=== PATIENT | female | born 1965 | race Caucasian/White ===

== ENCOUNTER 2023-10-14 18:21 | Emergency (ER) | payer OTHER, SELFPAY ==
[2023-10-14 18:24] VITALS: BP 152/82; PULSE 120; RESP 20; TEMP 38.3; O2SAT 100
--- NOTE | 2023-10-14 18:49 | ED.VIS.DYS ---
HPI History of Present Illness Chief Complaint: Cold Sx Informant: patient Narrative Narrative: History of asthma and lupus on immunosuppressants. 2-day history cough. Today myalgias and fever. Has headache. Denies vomiting or diarrhea. Denies urinary symptoms. No COVID or flu vaccinated this year. Reports dyspnea due to the cough. Denies COPD history. PFSH PFS Home Medications NK 10/14/23 [History Last Taken Unknown] nirmatrelvir 300 mg (150 mg x2)-ritonavir 100 mg tablet,dose pack (Paxlovid) See Rx Instructions PO .COMPLEX #30 tabs 10/14/23 [Rx Last Taken Unknown] prednisone 20 mg tablet 60 mg (3 x 20 mg) PO DAILY #12 TABLETS 10/14/23 [Rx Last Taken Unknown] Allergy/AdvReac Type Severity Reaction Status Date / Time aspirin Allergy Swelling Verified 10/14/23 18:24 acetaminophen [From Tylenol] AdvReac Other Verified 10/14/23 18:24 ketorolac [From Toradol] AdvReac Other Verified 10/14/23 18:24 Social History Smoking Status: Current every day smoker tobacco type: cigarettes ROS ROS ED Constitutional Constitutional ED: Reports fever(s); Denies chills or sweats Eyes Eyes: Denies change in vision ENT ENT ED: Denies dysphagia or sore throat Cardiovascular Cardiovascular: Denies chest pain, leg edema, palpitations or racing heartbeat Respiratory/Chest Respiratory/Chest: Reports cough and dyspnea; Denies dyspnea on exertion Gastrointestinal Gastrointestinal: Denies abdominal pain, diarrhea, nausea or vomiting Genitourinary Genitourinary ED: Denies dysuria, hematuria or urinary frequency Musculoskeletal Musculoskeletal: Reports myalgias; Denies back pain, extremity pain or neck pain Integumentary Denies rash or wounds Neurologic Neurologic: Reports headache(s); Denies paresthesias or weakness EXAM Physical Exam Const Vital Signs: 10/14/23 18:24 10/14/23 18:56 Temperature 100.9 F H Temperature Source Temporal Pulse Rate 120 H Respiratory Rate 20 H Respiratory Effort Normal Respiratory Pattern Normal Blood Pressure 152/82 H Blood Pressure Mean 105 Pulse Ox 100 Oxygen Delivery Method Room Air Positive well nourished and well developed General Appearance ED: well developed and NAD HEENT Reports moist mucous membranes normocephalic and atraumatic Eyes PERRL, EOMs intact bilaterally and conjunctivae normal General Eye ED: Yes normal appearance of both eyes Neck no lymphadenopathy and supple Neck Narrative: no meningismus. para Cervical tenderness. General: Negative for tenderness Chest Wall Chest: Negative for tenderness Resp normal respiratory effort and normal air movement Effort and Inspection: symmetric chest movement; Negative for respiratory distress Cardio regular rhythm and no murmurs Rate: tachycardic Peripheral Pulses: pulses 2+ throughout GI normal to inspection, nondistended, normoactive bowel sounds and non-tender Palpation: Negative for guarding or rebound tenderness present Back/Spine no CVA tenderness and no thoracic nor lumbar tenderness Extremity normal to inspection General Extremety ED: Negative for edema or tenderness General Extremity: Negative for edema Neuro oriented x3, CN's II-XII intact bilaterally and no sensory deficits noted Sensorium / Orientation: awake and alert Skin no rashes or lesions noted and no wounds MDM MDM MDM Narrative Medical decision making narrative: Interventions / MDM: Differential diagnosis: Viral syndrome Diagnosis considered but do not suspect: Pneumonia however chest x-ray negative My EKG interpretation: N/A Imaging independently reviewed and interpreted by myself: 2 view chest x-ray: No acute process External documents reviewed: N/A Test considered but not ordered:N/A ED course: Patient low-grade temperature on arrival nontoxic. Two-view chest x-ray ordered COVID influenza ordered. Results positive COVID chest x-ray negative for pneumonia. She is able to tolerate Motrin in the past therefore this was started. With her asthma history reported mild wheezing will start prednisone to help with symptoms pulse ox remained at 100% room air. Patient day 2 of symptoms with immunocompromise on Plaquenil for her lupus. Discussed Paxlovid as an option with side effects, she would like this sent to the pharmacy. Will continue steroids. Return precautions. All questions were answered. Re-evaluation: stable Disposition discussed with patient/family/significant other: Patient Case discussed with consulting clinician: N/A This note was generated with DocRun dictation software. It may contain incorrect words, spelling, and punctuation that were not noted in checking the note before signing. Radiography Diagnostic Testing: Clinical Impression(s) from Imaging Studies Chest X-Ray 10/14/23 19:03 IMPRESSION: Suspected chronic obstructive pulmonary disease. No acute pulmonary disease. Electronically Signed: George Russ MD at 19:31 EST , Discharge Plan Triage Chief Complaint: Cold Sx ED Provider: Tim Anders Dx/Rx/DC Orders Clinical Impression: COVID-19 virus infection, Fever, Asthma Instructions: Coronavirus Disease 2019 (COVID-19): Caring for Yourself or Others, Asthma Prescriptions: New Paxlovid 300 mg (150 mg x 2)-100 mg tablets,dose pack See Rx Instructions .ROUTE .COMPLEX Qty: 30 0RF Rx Instructions: take TWO 150 mg tablets of nirmatrelvir with ONE 100 mg tablet of ritonavir twice daily for 5 days prednisone 20 mg tablet 60 mg PO DAILY Qty: 12 0RF Rx Instructions: Next dose 10/15/2023. No Action NK Primary Care Provider: Jennifer Morris Referrals: Jennifer Morris, [Primary Care Provider] - 1 Week Activity Restrictions/Additional Instructions: Chest x-ray negative. Flu negative. COVID-positive. Continue your Plaquenil, take Paxlovid as prescribed, risk and benefits discussed. Take steroids with your asthma history. Follow-up with your doctor. Return for any worsening respiratory symptoms not controlled with your inhaler. May want to discuss with hospice who managed her mother for options as you are diagnosed with COVID. Disposition Disposition: Home, Self Care Discharge Date/Time: 10/14/23 20:18
--- NOTE | 2023-10-14 19:03 | RAD_ITS ---
INDICATION: cough EXAMINATION: Frontal and lateral views of the chest. COMPARISON: None. FINDINGS: Frontal and lateral views of the chest were obtained. Hyperinflation. The cardiac silhouette is not enlarged. No confluent airspace disease. Apical scarring bilaterally. No pleural effusion or pneumothorax. RAD/Chest PA and Lateral IMPRESSION: Suspected chronic obstructive pulmonary disease. No acute pulmonary disease. Electronically Signed: George Russ MD at 19:31 EST ,
[2023-10-14] MEDS: predniSONE 20 MG Tablet 60 MG PO (20:02)
[2023-10-14] MEDS: Ibuprofen 600 MG Tablet PO (20:02)
== END 2023-10-14 20:18 | disposition home or self-care (01) ==
PROVIDERS: Emergency Provider Emergency Medicine; PCP Family Medicine; Visit Provider Emergency Medicine
DX: U07.1 COVID-19 (principal); J45.909 Unspecified asthma, uncomplicated; R50.9 Fever, unspecified; F17.210 Nicotine dependence, cigarettes, uncomplicated
CPT/HCPCS: 71046; 87428; 99283

== ENCOUNTER 2023-12-07 22:48 | Emergency (ER) | payer OTHER, SELFPAY ==
[2023-12-07 22:48] VITALS: BP 129/97; PULSE 104; RESP 16; TEMP 36.1; O2SAT 95
--- NOTE | 2023-12-08 00:17 | EX.ED.VIS.PS ---
HPI HPI - Psych History of Present Illness Chief Complaint: Mental Health Narrative Narrative: Patient is brought in pink slipped due to paranoid behavior. The patient tells me that she called the police again tonight. She believes her neighbors are doing things to her. Of note, it takes extensive questioning to get this out of her. She has flight of ideas and has trouble staying on track for even 5 or 10 seconds. She states she has lived in this trailer for about 7 months. The neighbors initially ignored her. But recently they suddenly befriended her which she states she knows what that means. They have been crawling around in an underground sewer maintenance supervisor system that she has tracked on the night clerk auditor's website. They are releasing gases into her house. They put a tracking device on her keychain for her house and car. They are living above her and below her. But she lives in a mobile home and has no attic. Police have been there multiple times and verified that there is no founded complaint based in reality. Patient has been getting worse. 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 There is no indication of abuse but this is certainly concerning. When I ask if the patient's had psychiatric illness she states that everybody has something. She admits to attention deficit disorder. She alludes to psychiatric illness and multiple family members but I cannot get specifics from her. She is evidently on ropinirole for restless leg and Plaquenil for lupus. But these are not new or any change in her dose nor she take an extra. I specifically asked and she specifically denies if she has been on steroids recently. [facility] Medical History (Updated 12/08/23 @ 01:[address] Jacobo Terrell MD) Lupus Restless leg syndrome Home Medications hydroxychloroquine 200 mg tablet (Plaquenil) 200 mg PO QHS 12/08/23 [History Last Taken Unknown] lamotrigine 100 mg tablet 100 mg PO Q12H 12/08/23 [History Last Taken Unknown] ropinirole 0.5 mg tablet 0.5 mg PO QHS 12/08/23 [History Last Taken Unknown] Allergy/AdvReac Type Severity Reaction Status Date / Time aspirin Allergy Swelling Verified 12/07/23 22:48 acetaminophen [From Tylenol] AdvReac Other Verified 12/07/23 22:48 ketorolac [From Toradol] AdvReac Other Verified 12/07/23 22:48 Social History Smoking Status: Current every day smoker tobacco type: cigarettes ROS ROS ED Constitutional Constitutional ED: Denies fever(s) Eyes Eyes: Reports other Details: No visual hallucinations. Most of her hallucinations are auditory in terms of hearing the neighbors do things around above and below her house. ; Denies change in vision ENT ENT ED: Denies rhinorrhea Cardiovascular Cardiovascular: Denies chest pain Respiratory/Chest Respiratory/Chest: Denies cough or dyspnea Gastrointestinal Gastrointestinal: Denies diarrhea, nausea or vomiting Genitourinary Genitourinary ED: Denies hematuria Musculoskeletal Musculoskeletal: Denies myalgias Integumentary Denies rash Neurologic Neurologic: Denies headache(s), paresthesias or weakness Psychiatric Psychiatric: Reports anxiety and other Details: See history of present illness. ; Denies suicidal ideation or suicidal thoughts Endocrine Endocrinology: Denies polydipsia or polyuria Hematologic/Lymphatic Hematologic/Lymphatic: Denies easy bleeding or easy bruising Allergic/Immunologic Allergic/Immunologic ED: Denies urticaria EXAM Physical Exam Narrative Exam Narrative: General: Patient is awake and alert. She is cooperative but has trouble keeping on task. She is appropriately dressed and groomed. HEENT: No trauma noted. No congestion. Mucous membranes are moist. Neck is supple no pain with motion Lungs are clear bilaterally. Saturations are normal at 95% sat on room air showing no hypoxia. Heart is regular. No murmur. Abdomen is thin and nontender. Extremities show no sign of trauma. She does complain that the left shoulder hurts from having it pulled behind her. But I am not finding any areas of bruising or deformity. Exam is overall normal but we will do x-ray. Neuro: Patient is actually oriented x 3 but it takes some questioning. She is stable gait. Clear speech. Psychiatry: Patient has significant flight of ideas. Mild pressured speech. She has some paranoia. By history she has auditory hallucinations but no visual hallucinations. Const Vital Signs: 12/07/23 22:48 12/08/23 00:49 Temperature 97 F L Temperature Source Temporal Pulse Rate 104 H Respiratory Rate 16 16 Blood Pressure 129/97 H Blood Pressure Mean 107 Pulse Ox 95 MDM MDM MDM Narrative Medical decision making narrative: My independent interpretation of the patient's two-view x-ray of the left shoulder shows no acute process. Final reading is pending. Patient's CBC is normal. Urine toxicology is positive for amphetamines, ecstasy and cannabinoids. Patient's electrolytes showed minimal dehydration. Patient will be seen by crisis. This evaluation is pending. She is medically cleared for psychiatric evaluation and admission if needed. Lab Data Labs: Laboratory Results - last 24 hr 12/07/23 12/07/23 00:25 00:27 WBC 8.9 RBC 4.38 Hgb 14.1 Hct 41.8 MCV 95.4 MCH 32.2 H MCHC 33.7 RDW Std Deviation 45.2 H RDW Coeff of [place] 12.8 Plt Count 208 MPV 10.6 Immature Gran % (Auto) 0.300 Neut % (Auto) 79.9 H Lymph % (Auto) 10.5 L [place] % (Auto) 7.1 Eos % (Auto) 1.6 Baso % (Auto) 0.6 Absolute Neuts (auto) 7.1 Absolute Lymphs (auto) 0.94 Nucleated RBC % 0 Sodium 144 Potassium 3.9 Chloride 111 H Carbon Dioxide 25.0 Anion Gap 8 BUN 20 H Creatinine 0.78 Estim Creat Clear Calc 61.42 Est GFR (MDRD) Af Amer 97 Est GFR (MDRD) Non-Af 80 BUN/Creatinine Ratio 25.7 H Glucose 104 Calcium 9.3 Urine Opiates Screen NEGATIVE Urine Methadone Screen NEGATIVE Ur Barbiturates Screen NEGATIVE Ur Phencyclidine Scrn NEGATIVE Ur Amphetamines Screen POSITIVE H MDMA (Ecstasy) Screen POSITIVE H U Benzodiazepines Scrn NEGATIVE Urine Cocaine Screen NEGATIVE U Cannabinoids Screen POSITIVE H Ur Drug Screen Comment Ethyl Alcohol < 3.0 Discharge Plan Triage Chief Complaint: Mental Health ED Provider: Jacobo Terrell Dx/Rx/DC Orders Clinical Impression: Acute psychosis, Ecstasy abuse, Drug abuse, marijuana, Drug abuse, amphetamine type Prescriptions: No Action lamotrigine 100 mg tablet 100 mg PO Q12H Patient Comments: TAKE 1 TABLET BY MOUTH TWICE A DAY ropinirole 0.5 mg tablet 0.5 mg PO QHS Patient Comments: TAKE 1 TABLET BY MOUTH EVERYDAY AT BEDTIME hydroxychloroquine [Plaquenil] 200 mg tablet 200 mg PO QHS Primary Care Provider: Jennifer Morris Referrals: Jennifer Morris, [Primary Care Provider] -
--- OUTSIDE RECORDS SUMMARY | 2023-12-08 00:28 | XMS RPT_ITS | CCD ---
Author Name Unknown Address [address] [place] [address] Organization [facility] Care Team Providers Care Staff Anesthetist Name Role Phone UNKNOWN, PROVIDER Unavailable Unavailable SHEETS, STERLING C Unavailable Unavailable Barrie, Jose Unavailable Unavailable PREMA, ROSWELL Unavailable Unavailable Prema, Cordova Unavailable Unavailable Barrie, Jose Unavailable Unavailable Sheets, Sterling Unavailable Unavailable Sheets, Sterling Unavailable Unavailable Sheets, Sterling Unavailable Unavailable Sheets, Sterling Unavailable Unavailable Barrie, Jose Unavailable Unavailable No, PCP Unavailable Unavailable PROVIDER, UNKNOWN Unavailable Unavailable Prema, Cordova Unavailable Unavailable Sheets, Sterling Unavailable Unavailable Sheets, Sterling Unavailable Unavailable Prema, Cordova Unavailable Unavailable Anshu Cross Unavailable Unavailable Sheets, Sterling C Unavailable Unavailable Arafah, Baha Unavailable Unavailable Foster, Sreekanth C Unavailable Unavailable GholamAlvaro M Unavailable Unavailable Sheets, Sterling C Unavailable Unavailable Unavailable Stevo Terry Unavailable Sheets Sterling BAILEY Primary Care Provider Stevo Terry Unavailable Sheets Sterling BAILEY Primary Care Provider Stevo Terry Unavailable Sheets Sterling BAILEY Primary Care Provider STERLING MORRIS Referring Unavailable SHEETSSTERLING Primary Care Unavailable MD ANSHU CROSS Attending Unavailable Sheets, Dr. Sterling Liu Referring Unavailable Sheets, Dr. Sterling Liu Primary Care Unavailable Sheets, Dr. Sterling Liu Primary Care Unavailable MD ANSHU CROSS Referring Unavailable MD ANSHU CROSS Attending Unavailable ANSHU CROSS MD Attending Unavailable SHEETS, STERLING Sun Primary Care Unavailable ANSHU CROSS MD Attending Unavailable SHEETS, STERLING uSn Referring Unavailable SHEETS, STERLING C Primary Care Unavailable SHEETS, STERLING C Referring Unavailable SHEETS, STERLING C Primary Care Unavailable SHEETS, STERLING C Attending Unavailable SHEETS, STERLING C Primary Care Unavailable SHEETS, STERLING C Attending Unavailable SHEETS, STERLING C Primary Care Unavailable Sheets DO, Sterling Liu Primary Care Pro vider Anshu Cross MD Unavailable ANSHU CROSS Attending Unavailable SHEETS, STERLING LIU Primary Care Celestina vailable Allergies Allergy Classification Reported Allergen(s) Allergy Type Date of Onset Reaction(s) Facility Acetaminophen (1 source) Acetaminophen; Translations: [Tylenol] Drug Allergy Swelling, Itching [facility] Work Phone: Aspirin (1 source) Aspirin; Translations: [Aspirin TABS] Drug Allergy Itching, Swelling [facility] Work Phone: Lactose (1 source) Lactose; Translations: [Lactose] Drug Allergy Dyspepsia [facility] Work Phone: NSAIDs (1 source) Etodolac; Translations: [etodolac] Drug Allergy Itching, Swelling [facility] Work Phone: (18 sources) Acetaminophen; Translations: [Tylenol] Drug Allergy Swelling, Itching [facility] Work Phone: (20 sources) Aspirin; Translations: [Aspirin TABS] Drug Allergy 7 Itching, Swelling [facility] (20 sources) Etodolac; Translations: [etodolac] Drug Allergy 3 Itching, Swelling [facility] (20 sources) Lactose; Translations: [Lactose] Drug Allergy 7 Swelling, GI Upset [facility] (14 sources) Acetaminophen; Translations: [ACETAMINOPHEN] Drug Allergy 7 Unknown, Itching, Swelling [facility] Work Phone: (4 sources) Aspirin; Translations: [ASPIRIN] Drug Allergy 7 [facility] Other [facility] Medications Current Medications Medication Drug Class(es) Dates Sig (Normalized) Sig (Original) diclofenac sodium 0.01 mg/mg topical gel (20 sources) Nonsteroidal Anti-inflammatory Drug Start: 09-11-2018 diclofenac sodium 1 % kit Place on the skin once daily. 0 09/11/2018 Active Completed/Discontinued Medications Medication Drug Class(es) Dates Sig (Normalized) Sig (Original) [id number] 200 actuat albuterol 0.09 mg/actuat metered dose inhaler (20 sources) beta2-Adrenergic Agonist Start: 10-05-2019 albuterol HFA (PROAIR HFA) 90 mcg/actuation inhaler Indications: Mild intermittent asthma, uncomplicated Inhale 2 Puffs as instructed as needed. 1 Inhaler 0 10/05/2019 Active Problems Active Problems Problem Classification Problem Date Documented Date Episodic/Chronic Anxiety disorders (1 source) Other specified anxiety disorders; Translations: [Anxiety with depression] Onset: 10-12-2023 Chronic Asthma (11 sources) Mild intermittent asthma; Translations: [Mild intermittent asthma, uncomplicated] Onset: 11-05-2018 11-05-2018 Chronic Attention-deficit, conduct, and disruptive behavior disorders (9 sources) Attention deficit hyperactivity disorder; Translations: [Attention-deficit hyperactivity disorder, unspecified type] Onset: 01-07-2017 01-07-2017 Chronic Epilepsy; convulsions (14 sources) Seizure disorder; Translations: [Epilepsy, unspecified, not intractable, without status epilepticus] Onset: 03-28-2022 03-28-2022 Chronic Mood disorders (20 sources) Depressive disorder; Translations: [Depressive disorder, not elsewhere classified] Onset: 01-07-2017 01-07-2017 Chronic Past or Other Problems Problem Classification Problem Date Documented Date Episodic/Chronic Allergic reactions (13 sources) Allergy status to analgesic agent status; Translations: [Allergy status to other drugs, medicaments and biological substances status] Onset: 06-13-2017 07-18-2020 Episodic E Codes: Fall (7 sources) Fall from bed, initial encounter; Translations: [Accidental fall from bed] Resolved: 07-13-2020 Episodic External cause codes: Fall (1 source) Fall from bed, initial encounter; Translations: [Accidental fall from bed] Medical examination/evaluatio n (2 sources) Encounter for other preprocedural examination; Translations: [Encounter for other preprocedural examination] Onset: 06-05-2017 Episodic Other aftercare (12 sources) Long-term current use of drug therapy; Translations: [Long-term (current) use of other medications] Resolved: 06-10-2018 Episodic Other circulatory disease (10 sources) Elevated blood-pressure reading without diagnosis of hypertension; Translations: [Elevated blood-pressure reading, without diagnosis of hypertension] Onset: 03-28-2022 03-28-2022 Episodic Other connective tissue disease (6 sources) Trigger thumb, left thumb; Translations: [Pain in right hand] Onset: 05-22-2017 Episodic Other connective tissue disease (9 sources) Tendinitis of foot; Translations: [Other enthesopathy of unspecified foot and ankle] Onset: 03-04-2017 03-04-2017 Episodic Other eye disorders (9 sources) Tear film insufficiency; Translations: [Dry eye syndrome of bilateral lacrimal glands] Onset: 03-20-2021 03-20-2021 Episodic Other injuries and conditions due to external causes (2 sources) Personal history of (healed) traumatic fracture; Translations: [Personal history of (healed) traumatic fracture] Onset: 05-22-2017 Episodic Other liver diseases (9 sources) Elevated liver enzymes level; Translations: [Abnormal levels of other serum enzymes] Onset: 08-19-2017 08-19-2017 Episodic Other lower respiratory disease (8 sources) Rib pain; Translations: [Chest pain, unspecified] Resolved: 07-19-2021 Episodic Other lower respiratory disease (19 sources) H/O: pneumonia; Translations: [Personal history of pneumonia (recurrent)] Resolved: 01-28-2015 Episodic Results Test Name Value Interpretation Reference Range Facil ity Vital Signs Date Time Vital Sign Value Performing Clinician Catalina robertson 05-29-2023 15:00-0400 Body height 165.1 cm Sterling C [employer] Work Phone: [facility] 1051 Work Phone: 05-29-2023 15:00-0400 Body mass index (BMI) [Ratio] 22.03 kg/m2 Sterling C Sheets Work Phone: [facility] 1050 Work Phone: 05-29-2023 15:00-0400 Body surface area Derived from formula 1.66 m2 Sterling C Sheets Work Phone: [facility] 105 Work Phone: 05-29-2023 15:00-0400 Body weight 60.05 kg Sterling C Sheets Work Phone: [facility] 1051 Work Phone: 05-29-2023 15:00-0400 Diastolic blood pressure 79 mm[Hg] Sterling C Sheets Work Phone: [facility] 1058 Work Phone: 05-29-2023 15:00-0400 Heart rate 72 /min Sterling C Sheets Work Phone: [facility] 1059 Work Phone: 05-29-2023 15:00-0400 Respiratory rate 18 /min Sterling C Sheets Work Phone: [facility] 1056 Work Phone: 05-29-2023 15:00-0400 SaO2% (BldA) [Mass fraction] 97 % Sterling C Sheets Work Phone: [facility] 1057 Work Phone: 05-29-2023 15:00-0400 Systolic blood pressure 143 mm[Hg] Sterling C Sheets Work Phone: [facility] 1057 Work Phone: 12-16-2022 15:52-0500 Body height 157.5 cm Sterling Sheets DO Work Phone: [facility] 12-16-2022 15:52-0500 Body temperature 98.2 [degF] Sterling Sheets DO Work Phone: [facility] 12-16-2022 15:52-0500 Body weight 62.78 kg Sterling Sheets DO Work Phone: [facility] 12-16-2022 15:52-0500 Diastolic blood pressure 70 mm[Hg] Sterling Sheets DO Work Phone: [facility] 12-16-2022 15:52-0500 Heart rate 81 /min Sterling Sheets DO Work Phone: [facility] 12-16-2022 15:52-0500 Respiratory rate 16 /min Sterling Sheets DO Work Phone: [facility] 12-16-2022 15:52-0500 SaO2% (BldA) [Mass fraction] 99 % Sterling Sheets DO Work Phone: [facility] 12-16-2022 15:52-0500 Systolic blood pressure 128 mm[Hg] Sterling Sheets DO Work Phone: [facility] 07-29-2022 13:03-0400 Body height 165.1 cm Sterling C Sheets Work Phone: [facility] Work Phone: 07-29-2022 13:03-0400 Body mass index (BMI) [Ratio] 24.03 kg/m2 Sterling C Sheets Work Phone: [facility] Work Phone: 07-29-2022 13:03-0400 Body surface area Derived from formula 1.72 m2 Sterling C Sheets Work Phone: [facility] Work Phone: 07-29-2022 13:03-0400 Body temperature 97.3 [degF] Sterling C Sheets Work Phone: [facility] Work Phone: 07-29-2022 13:03-0400 Body weight 65.49 kg Sterling C Sheets Work Phone: [facility] Work Phone: 07-29-2022 13:03-0400 Diastolic blood pressure 77 mm[Hg] Sterling C Sheets Work Phone: [facility] Work Phone: 07-29-2022 13:03-0400 Heart rate 70 /min Sterling C Sheets Work Phone: [facility] Work Phone: 07-29-2022 13:03-0400 Respiratory rate 18 /min Sterling C Sheets Work Phone: [facility] Work Phone: 07-29-2022 13:03-0400 SaO2% (BldA) [Mass fraction] 95 % Sterling C Sheets Work Phone: [facility] Work Phone: 07-29-2022 13:03-0400 Systolic blood pressure 146 mm[Hg] Sterling C Sheets Work Phone: [facility] Work Phone: 07-29-2022 13:03-0400 0 1 Sterling C Sheets Work Phone: [facility] Work Phone: Encounters Encounter Date Encounter Type Care Provider Facility Start: 11-27-2023 End: 11-27-[address] [facility] Ambulatory Start: 11-27-2023 End: 11-27-2023 Office outpatient visit 15 minutes Anshu Cross MD Work Phone: [facility] Procedures Date Procedure Procedure Detail Performing Clinician Start: 04-07-2023 Mammography Mammograph y Coordinator Start: 06-26-2022 Mammography Mammograph y Coordinator Start: 03-28-2022 Radex spine lumbosac ral minimum 4 views Sterling C Sheets DO Work Phone: Start: 09-27-2021 Adult depression scr eening assessment [facility] Start: 06-21-2020 Mammography [facility] Start: 04-13-2018 Colonoscopy [facility] Appendectomy Anshu Cross section Anshu Marc nslali Hernia repair Anshu Carr i History of Hand Inci kota Tendon Sheath Of A Finger Anshu Cross 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 Anshu Cross History of Transsphe noidal Tumor Removal Anshu Cross History of Wrist Surgery Angela Cross Neuroplasty and transposition of median nerve at carpal tunnel Anshu Cross Plan of Treatment Date Care Activity Detail Author Start: 07-12-2025 LIPID SCREEN LIPID SCREEN [facility] Start: 04-07-2024 Mammography MAMMOGRAM [facility] Start: 04-07-2024 Screening for malign ant neoplasm of breast Mammogram [facility] Start: 12-16-2023 ANNUAL PCP TEAM ASSOCIATE ACCOUNT DIRECTOR LUZ DISEASE VISIT ANNUAL PCP TEAM CHRONIC DISEASE VISIT [facility] Start: 11-27-2023 FUV, Provider: Anshu Cross, Status: Pen, Time: 3:00 PM FUV, Provider: Anshu Cross, Status: Pen, Time: 3:00 PM [facility] [place] [id number] Work Phone: Start: 07-12-2023 DIABETES SCREEN DIABETES SCREEN [facility] Start: 06-27-2023 COVID-19 Vaccine ( season) COVID-19 Vaccine ( season) [facility] Start: 06-27-2023 Influenza vaccination Influenza Vacc ine (#1) [facility] Start: 08-31-2023 Mammography MAMMOGRAM [facility] Start: 04-13-2023 Colonoscopy COLONOSCOPY [facility] Start: 04-13-2023 COLORECTAL CANCER SCREENING COLORECTAL CANCER SCREENING [facility] Start: 04-11-2023 End: 05-10-2024 US BREAST LTD RIGHT US BREAST LTD RIGHT Radiology Routine Abnormal mammogram Expected: 04/11/2023, Expires: 05/10/2024 [facility] Work Phone: Immunizations Immunization Date Immunization Notes Care Provider Nicole calderón 07-29-2022 influenza, injectabl e, quadrivalent, preservative free; Translations: [Fluarix Quadrivalent 0.5 ML Intramuscular Suspension Prefilled Syringe] Sterling Morris Work Phone: [facility] Payers Date Payer Category Payer Private Health Insurance [id number] 2018 Private Health Insurance [facility] CHOICE PLUS [id number] 2018-Present [phone] [address] [place] [address] O [id number] 2018 Medicare MEDICARE MEDICAR E A [id number] 2018-Present [phone] [address] [place] [address] Medicare [id number] 2018 Medicare MEDICARE MEDICAR E A [id number] 2018-Present [phone] [address] [place] [address] Medicare [id number] 2008 Private Health Insurance 1964 Unknown [id number] 1964 Unknown [id number] 1964 Unknown [id number] 1964 Unknown [id number] 1964 Unknown [id number] Unknown [facility] Social History Date Type Detail Facility Start: 09-01-2013 End: 11-27-2023 [facility] Medical Equipment Procedure Code Equipment Code Equipment Origin al Text Equipment Identifier Dates Plate Lcp Standa rd [employer] [id number] Bone 6x3 Hole 2 Column Variable - [id number] Start: 01-08-2017 Screw Lcp 2.7mm T8 [employer] 14mm Bone Stardrive Self Tap Modular - [id number] Start: 01-08-2017 Screw Lcp 2.4mm T8 [employer] 24mm Bone Self Tap Self Retaining - [id number] Start: 01-08-2017 Screw Lcp 2.4mm T8 [employer] 20mm Bone Variable Angle Lock Self Tap - [id number] Start: 01-08-2017 Screw Lcp 2.4mm T8 [employer] 14mm Bone Variable Angle Lock Self Tap - [id number] Start: 01-08-2017 Screw Lcp 2.4mm T8 [employer] 16mm Bone Variable Angle Lock Self Tap - [id number] Start: 01-08-2017 Screw Lcp 2.7mm T8 [employer] 12mm Bone [employer] Self Tap Modular - [id number] Start: 01-08-2017 Functional Status Date Assessment Result Facility NEGATED: Highlighted row Functional performance Functional status health issues are not documented Disease -[facility] Work Phone: Mental Status Date Assessment Result Facility NEGATED: Highlighted row Cognitive function [Interpretation] Cognitive status health issues are not documented Disease -[facility] Work Phone: Clinical Notes 05-22-2017 to 11-27-2023 Assessment & Plan Note - Anshu Cross MD - 11/27/2023 3:55 PM ESTAssessment & Plan Note - Anshu Cross MD - 11/27/2023 3:55 PM Amor Cross MD - 11/27/2023 3:00 PM EST Note Date & Type Note Facility 11-27-2023 Evaluation + Plan note Associated Problem(s): Bipolar 1 disorder (CMS/HCC) Chronic Condition Documentation: Stable based on symptoms and exam. Continue established treatment plan and follow-up at least yearly. Managed by PCP [facility] Work Phone: 11-27-2023 Evaluation + Plan note Associated Problem(s): Seizure disorder (CMS/HCC) Chronic Condition Documentation: Stable based on symptoms and exam. Continue established treatment plan and follow-up at least yearly. Monitored by PCP [facility] Work Phone: 11-27-2023 Evaluation + Plan note Associated Problem(s): Mild intermittent asthma, uncomplicated Chronic Condition Documentation: Stable based on symptoms and exam. Continue established treatment plan and follow-up at least yearly. Managed by PCP [facility] Work Phone: 11-27-2023 Miscellaneous Notes Associated Problem(s): Bipolar 1 disorder (CMS/HCC) Chronic Condition Documentation: Stable based on symptoms and exam. Continue established treatment plan and follow-up at least yearly. Managed by PCP Associated Problem(s): Seizure disorder (CMS/HCC) Chronic Condition Documentation: Stable based on symptoms and exam. Continue established treatment plan and follow-up at least yearly. Monitored by PCP Associated Problem(s): Mild intermittent asthma, uncomplicated Chronic Condition Documentation: Stable based on symptoms and exam. Continue established treatment plan and follow-up at least yearly. Managed by PCP Associated Problem(s): Systemic lupus erythematosus (CMS/HCC) Lupus on plaquenil therapy largely stable. Continue meds. Pt to call me if flares. Labs to be done at next inperson visit. Associated Problem(s): Encounter for monitoring of hydroxychloroquine therapy You are on chronic plaquenil. Make sure you see your eye doctor yearly. If you need an eye doctor, let me know and I can place a referral Plaquenil is dosed based on your weight. We will make sure your dose is below the maximum daily dose of 5mg/kg documented in this encounter [facility] Work Phone: 11-27-2023 Evaluation + Plan note Associated Problem(s): Systemic lupus erythematosus (CMS/HCC) Lupus on plaquenil therapy largely stable. Continue meds. Pt to call me if flares. Labs to be done at next inperson visit. [facility] Work Phone: 11-27-2023 Evaluation + Plan note Associated Problem(s): Encounter for monitoring of hydroxychloroquine therapy You are on chronic plaquenil. Make sure you see your eye doctor yearly. If you need an eye doctor, let me know and I can place a referral Plaquenil is dosed based on your weight. We will make sure your dose is below the maximum daily dose of 5mg/kg [facility] Work Phone: 11-27-2023 History of Present illness Narrative Virtual or Telephone Consent An interactive audio and video telecommunication system which permits real time communications between the patient (at the originating site) and provider (at the distant site) was utilized to provide this telehealth service. Verbal consent was requested and obtained from Krys Hanley on this date, 11/27/23 for a telehealth visit. Chief Complaint Patient presents with Follow-up Lupus SUBJECTIVE Lupus This is a chronic problem. Associated symptoms include arthralgias, fatigue and joint swelling. Pertinent negatives include no coughing, fever, myalgias, numbness, rash or weakness. Associated symptoms comments: Pt reports symptoms are stable. 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 Reports lupus is stable Some fatigue No rashes. Has swelling of R fingers and trigger fingers that are stuck that she hasn't been able to get in to see ortho. Since last seen, did have COVID in September. Did well with paxlovid. Patient Active Problem List Diagnosis Date Noted Bipolar 1 disorder ([facility]) 11/27/2023 Seizure disorder ([facility]) 11/27/2023 Mild intermittent asthma, uncomplicated 11/27/2023 Dupuytren's contracture 11/23/2023 Elevated blood pressure reading 11/23/2023 NAFLD (nonalcoholic fatty liver disease) 11/23/2023 Nontoxic multinodular goiter 11/23/2023 Osteopenia 11/23/2023 Raynaud's phenomenon 11/23/2023 Recurrent major depressive disorder, in partial remission ([facility]) 11/23/2023 Restless legs syndrome (RLS) 11/23/2023 Scoliosis 11/23/2023 Systemic lupus erythematosus ([facility]) 11/23/2023 Encounter for monitoring of hydroxychloroquine therapy 11/23/2023 Past Medical History: Diagnosis Date Ankle fracture History of fracture of ankle Cervical herniated disc Cervical herniated disc Consumes 2 to 3 servings of caffeine per day Goiter 05/04/2014 Personal history of goiter retirement (current) use of non-steroidal anti-inflammatories (nsaid) 01/11/2021 NSAID long-term use Migraine History of migraine Personal history of pneumonia (recurrent) 10/03/2014 History of pneumonia Seizure ([facility]) History of seizure disorder Stress fracture, right foot, initial encounter for fracture Stress fracture of right foot Current Outpatient Medications Medication Instructions albuterol (ProAir HFA) 90 mcg/actuation inhaler 1 puff, inhalation, Every 6 hours PRN cycloSPORINE (Restasis) 0.05 % ophthalmic emulsion 1 drop, Both Eyes, Every 12 hours diclofenac sodium 1 % kit transdermal, Daily RT DULoxetine (CYMBALTA) 20 mg, oral, Daily fluticasone (Flonase) 50 mcg/actuation nasal spray 1 spray, nasal, Daily hydroxychloroquine (Plaquenil) 200 mg tablet 1.5 tablets, oral, Daily lamoTRIgine (LaMICtal) 100 mg tablet 1 tablet, oral, 2 times daily methocarbamol (ROBAXIN) 750 mg, oral, 4 times daily rOPINIRole (REQUIP) 0.5 mg, oral, Nightly Allergies Allergen Reactions Acetaminophen Itching and Swelling Aspirin Itching and Swelling Etodolac Itching and Swelling Lactose GI Upset Review of Systems Constitutional: Positive for fatigue. Negative for fever. Respiratory: Negative for cough and shortness of breath. Cardiovascular: Negative for leg swelling. Musculoskeletal: Positive for arthralgias and joint swelling. Negative for back pain, gait problem and myalgias. Skin: Negative for color change and rash. Neurological: Negative for weakness and numbness. PHYSICAL EXAM There were no vitals taken for this visit. Physical Exam Vitals reviewed. Constitutional: General: She is not in acute distress. Appearance: She is not ill-appearing. HENT: Head: Normocephalic and atraumatic. Eyes: Conjunctiva/sclera: Conjunctivae normal. Pulmonary: Effort: No respiratory distress. Musculoskeletal: General: Swelling present. Cervical back: Normal range of motion. Comments: +trigger fingers 3rd and 4th finger R hand. 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 Neurological: General: No focal deficit present. Mental Status: She is alert and oriented to person, place, and time. Mental status is at baseline. Psychiatric: Mood and Affect: Mood normal. Assessment/plan Problem List Items Addressed This Visit Systemic lupus erythematosus ([facility]) - Primary Current Assessment & Plan Lupus on plaquenil therapy largely stable. Continue meds. Pt to call me if flares. Labs to be done at next inperson visit. Encounter for monitoring of hydroxychloroquine therapy Current Assessment & Plan You are on chronic plaquenil. Make sure you see your eye doctor yearly. If you need an eye doctor, let me know and I can place a referral Plaquenil is dosed based on your weight. We will make sure your dose is below the maximum daily dose of 5mg/kg Bipolar 1 disorder ([facility]) Current Assessment & Plan Chronic Condition Documentation: Stable based on symptoms and exam. Continue established treatment plan and follow-up at least yearly. Managed by PCP Seizure disorder ([facility]) Current Assessment & Plan Chronic Condition Documentation: Stable based on symptoms and exam. Continue established treatment plan and follow-up at least yearly. Monitored by PCP Mild intermittent asthma, uncomplicated Current Assessment & Plan Chronic Condition Documentation: Stable based on symptoms and exam. Continue established treatment plan and follow-up at least yearly. Managed by PCP Follow up: ___6__months documented in this encounter [facility] Work Phone: 11-27-2023 Instructions Anshu Cross MD - 11/27/2023 3:00 PM EST It was a pleasure to see you today Please call if your symptoms worsen Please review your summary for education and reminders. Follow up at your next appointment. If you had labs/xrays done today, you will be able to view on [facility]. We will contact you when the results are reviewed for further discussion. Please note that you may receive your results before I have had a chance to review. Please know I will be contacting you for discussion Homegoing instructions for all patient A healthy lifestyle helps chronic diseases These are all the goals you should strive to improve your overall health Blood pressure <130/85 BMI of <30 or waist circumference that is 1/2 of your height Fasting blood sugar <107 (if you are diabetic, aim for an A1c <6.4%_ LDL cholesterol <130 Avoid smoking Manage your stress Get your preventive exams Get your immunizations documented in this encounter [facility] Work Phone: 09-30-2023 Note HNO ID: [id number] Author: Sterling Morris, DO Service: ? Author Type: Physician Type: Progress Notes Filed: 10/12/2023 9:09 PM Note Text: VIRTUAL VISIT PROGRESS NOTE This is a virtual visit using [employer] Video Visit. It required patient-provider interaction for the medical decision making as documented below. I have communicated my name and active licensure. The patient's identity and physical location were verified at the time of this visit. Either the patient or their legal telesales representative has been informed of the risks and benefits of -- and alternatives to -- treatment through a remote evaluation and consents to proceed with the evaluation remotely. Krys Hanley is a 58 year old female seen for f/u for depression. She is taking cymbalta 60 mg daily She is feeling OK She lives with her mom and is taking care of her Her mom is in hospice at home She has a good friend who helps her and is a good social support She has a history of lupus, gets stiff occasionally, has to keep moving She is under the care of Dr. Alcala, chart collector She needs a refill of lamictal HISTORY REVIEWED (electronic chart updated): PAST MEDICAL HISTORY Diagnosis Date ADHD (attention deficit hyperactivity disorder) Bipolar 1 disorder (HCC) Carpal tunnel syndrome Cervical radiculopathy Epilepsy, partial (HCC) Golfer's elbow Lupus (systemic lupus erythematosus) (HCC) Nodular scleritis of both eyes peripheral vision loss Osteoarthritis Osteoporosis Sciatica Syncope Tennis elbow Vision loss left eye PAST SURGICAL HISTORY Procedure Laterality Date APPENDECTOMY CARPAL TUNNEL Bilateral INCISE FINGER TENDON SHEATH Left 01/08/2017 Left index trigger finger release OPEN RX DISTAL RADIUS FX, INTRA-ARTICULAR, 3+ FRAG Left 01/08/2017 ORIF left wrist PAST SURGICAL HISTORY OF Right trigger finger release of digits 1-4 PAST SURGICAL HISTORY OF Bilateral ulnar nerve decompression PROC RM-SPINAL FLUID TAP,DIAG repair RESEC CYST/LESN IRIS/CILIARY BODY 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 FAMILY HISTORY Problem Relation Age of Onset Hypertension Father Heart Father Emphysema Father Diabetes Father Cataract Father Cancer Father skin cancer Amblyopia Other Arthritis Mother Thyroid Mother Glaucoma Mother Cervical Cancer Mother Cervical Cancer Sister other (Leukemia) Maternal Uncle Social History Tobacco Use Smoking status: Every Day Packs/day: .5 Types: Cigarettes Start date: 10/27/1981 Smokeless tobacco: Never Substance Use Topics Alcohol use: No Drug use: No Current Outpatient Medications Medication Sig fluticasone (FLONASE) 50 mcg/actuation nasal spray Use 1 [place] in each nostril at bedtime as needed. lamoTRIgine (LAMICTAL) 100 mg tablet Take 1 tablet by mouth twice daily. methocarbamol (ROBAXIN) 500 mg tablet Take 500 mg by mouth four times daily. As needed DULoxetine (CYMBALTA) 60 mg capsule Take 1 capsule by mouth twice daily. (Patient taking differently: Take 60 mg by mouth twice daily. As needed) RESTASIS 0.05 % ophthalmic emulsion diclofenac (VOLTAREN) 1 % topical gel Apply as directed. rOPINIRole (REQUIP) 0.25 mg tablet Take 1 tablet by mouth every morning AND 2 tablets daily at bedtime. 1 tablet by mouth in the Amg, 2 tablets by mouth in the PM. albuterol HFA (PROAIR HFA) 90 mcg/actuation inhaler Inhale 2 Puffs as instructed as needed. B Complex Vitamins capsule vitamin B complex capsule Ascorbic Acid 100 mg tablet ascorbic acid 100 mg tablet lactase (LACTAID) 3,000 unit tablet Take 1 tablet by mouth three times daily as needed. HYDROXYCHLOROQUINE 200 mg tablet Take 150 mg by mouth twice daily. No current facility-administered medications for this visit. ALLERGIES Allergen Reactions Asa [Aspirin] Itching Patient wanted med added to her allergy list Etodolac Swelling Lactose Swelling Patient wanted this added to her list Tylenol [Acetaminop* Unknown She states it causes elevated liver enzymes. She states she takes Percocet and [place] without problem REVIEW OF SYSTEMS: HEENT: denies [place], change in hearing or vision, no other ENT complaints NECK: denies swelling or pain in neck RESPIRATORY: no cough, no wheezing or shortness of breath CARDIOVASCULAR: no chest pain, no palpitations GI: normal appetite, tolerating PO well, BMs normal, and no abdominal pain MUSCULOSKELETAL: denies any painful or swollen joints, no muscle aches SKIN: no rash PSYCH: denies depressed or anxious mood, sleep is normal HEMATOLOGY/LYMPHOLOGY: negative for prolonged bleeding, no swollen lymph nodes ENDOCRINE: denies cold/heat intolerance, denies polyuria or polydipsia, no goiter NEURO: no numbness or paresthesias and no weakness of the extremities PHYSICAL EXAMINATION: VIDEO EXAM: (if completed, performed via video enabled technology) GENERAL: alert and appropriate, in no distress, well-hydrated (more content not included)... [facility] 06-25-2023 Note HNO ID: [id number] Author: Nicolle Lewis RDMS Service: ? Author Type: Button Breaker Operator Type: Progress Notes Filed: 06/25/2023 1:23 PM Note Text: Radiology Service Progress Note PATIENT NAME: Krys Hanley DATE OF SERVICE: June 25, 2023 TIME: 1:22 PM PATIENT IDENTITY VERIFICATION COMPLETED USING TWO (2) IDENTIFIERS: Name and Date of confirmed by patient verbally. FALL SCREENING: Has the patient had 2 falls in the last year or 1 fall with injury or currently using an Ambulatory Assistive Device (Walker, Cane, Wheelchair, Crutches, etc.)? No PATIENT GENDER DATA: Female. status: : No status: NO. PATIENT RELEVANT IMPLANT DATA REVIEWED: Not Applicable RADIOLOGY DEPARTMENT: Ultrasound PERIPHERAL IV DATA: Not applicable SIGNED BY: Nicolle Lewis RDMS June 25, 2023 1:22 PM [facility] 04-15-2023 Miscellaneous Notes All information left on patients vm. (Ok per lifetime consent). Jennifer Gage MA Please call pt- mammogram looks OK, but they are recommending an US of the right breast to be thorough. Order attached .Sterling Morris DO documented in this encounter [facility] 04-08-2023 Miscellaneous Notes April 08, 2023 PID: [id number] Krys Hanley [address] [place] [address] Dear Ms. Hanley, Your recent breast imaging exam on 04/07/2023 showed a possible finding that requires additional imaging studies for a complete evaluation. Most such findings are probably benign (not cancer). Your mammogram demonstrates that you have dense breast tissue, which could hide abnormalities. Dense breast tissue, in and of itself, is a relatively common condition. Therefore, this information is not provided to cause undue concern; rather, it is to raise your awareness and promote discussion with your health care provider regarding the presence of dense breast tissue in addition to other risk factors. If you have a healthcare provider who ordered/prescribed your screening mammogram: Please call to schedule an appointment for your additional imaging (if you have not already done so). Additional Imaging cannot be self scheduled in [facility]. If you DO NOT have a healthcare provider (ie you did not have an order/prescription for your screening mammogram): Please call to schedule an appointment for your additional imaging (if you have not already done so). Additonal Imaging cannot be self scheduled in [facility]. This exam cannot be self scheduled in [facility]. You must have an order/prescription from your physician when calling to schedule your appointment. If your order/prescription is not electronic, you must bring the hard copy with you on the day of your exam Your imaging studies and reports are kept on file at [facility] as part of your permanent medical record, and are available for your continuing care. Thank you for allowing us to help in meeting your health care needs. Sincerely, Dr. Rawls Interpreting Radiologist [facility] (Additional imaging) documented in this encounter [facility] 04-07-2023 Note HNO ID: [id number] Author: RT Humera(R) Service: Radiology Author Type: Technologist Type: Progress Notes Filed: 04/07/2023 2:16 PM Note Text: Radiology Service Progress Note PATIENT NAME: Krys Hanley DATE OF SERVICE: April 07, 2023 TIME: 2:15 PM PATIENT IDENTITY VERIFICATION COMPLETED USING TWO (2) IDENTIFIERS: Name and Date of confirmed by patient verbally. FALL SCREENING: Has the patient had 2 falls in the last year or 1 fall with injury or currently using an Ambulatory Assistive Device (Walker, Cane, Wheelchair, Crutches, etc.)? No PATIENT GENDER DATA: Female. status: : No status: NO. PATIENT RELEVANT IMPLANT DATA REVIEWED: Not Applicable RADIOLOGY DEPARTMENT: Mammography PERIPHERAL IV DATA: Not applicable SIGNED BY: Minoo Sen RT April 07, 2023 2:15 PM [facility] 01-01-2023 Miscellaneous Notes [facility] Disability Status Update filled out and signed by Dr. Morris. Forms have been faxed to [facility] [phone]. 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 Hazel Holbrook MA documented in this encounter [facility] 12-16-2022 Note HNO ID: [id number] Author: Sterling Morris, DO Service: ? Author Type: Physician Type: Progress Notes Filed: 12/27/2022 3:10 PM Note Text: SUBJECTIVE: 57 year old female for annual checkup. I have fully reviewed the past medical, surgical, social and family history and updated the Histories section of [facility]. She has duputryn's contracture of both hands Left hand cannot be fully opened She has seen frantz Ayala, and plans to return to see him Her lower back and right hip have been bothering her, especially when she has been walking She has had multiple injections in the right knee, cannot get more, but does not want knee replacement surgery at this time Her mother is ill in palliative care and she is staying with her and helping her No LMP recorded. Patient is postmenopausal. ALLERGIES Allergen Reactions Asa [Aspirin] Itching Patient wanted med added to her allergy list Etodolac Swelling Lactose Swelling Patient wanted this added to her list Tylenol [Acetaminop* Unknown She states it causes elevated liver enzymes. She states she takes Percocet and [place] without problem Current Outpatient Medications Medication Sig Dispense Refill lamoTRIgine (LAMICTAL) 100 mg tablet Take 1 tablet by mouth twice daily. 180 tablet 3 methocarbamol (ROBAXIN) 500 mg tablet Take 500 mg by mouth four times daily. As needed DULoxetine (CYMBALTA) 60 mg capsule Take 1 capsule by mouth twice daily. (Patient taking differently: Take 60 mg by mouth twice daily. As needed) 60 capsule 2 RESTASIS 0.05 % ophthalmic emulsion diclofenac (VOLTAREN) 1 % topical gel Apply as directed. fluticasone (FLONASE) 50 mcg/actuation nasal spray USE 1 SPRAY IN EACH NOSTRIL AT BEDTIME NEEDED. 48 mL 1 rOPINIRole (REQUIP) 0.25 mg tablet Take 1 tablet by mouth every morning AND 2 tablets daily at bedtime. 1 tablet by mouth in the Amg, 2 tablets by mouth in the PM. 270 tablet 3 albuterol HFA (PROAIR HFA) 90 mcg/actuation inhaler Inhale 2 Puffs as instructed as needed. 1 Inhaler 0 B Complex Vitamins capsule vitamin B complex capsule Ascorbic Acid 100 mg tablet ascorbic acid 100 mg tablet lactase (LACTAID) 3,000 unit tablet Take 1 tablet by mouth three times daily as needed. 90 tablet 1 HYDROXYCHLOROQUINE 200 mg tablet Take 150 mg by mouth twice daily. No current facility-administered medications for this visit. ACTIVE PROBLEM LIST Cervicalgia Spondylosis of Cervical Region Without Myelopathy Or Radiculopathy Osteoarthritis of Spine With Radiculopathy, Lumbar Region Chronic Midline Low Back Pain Without Sciatica Bipolar 1 Disorder (Hcc) Adhd (Attention Deficit Hyperactivity Disorder) Tendonitis of Foot Systemic Lupus Erythematosus (Hcc) Elevated Liver Enzymes Restless Leg Syndrome Dupuytren Contracture Osteopenia Lactose Intolerance Encounter for Screening Colonoscopy Fatty Liver Disease, Nonalcoholic Chronic Right Shoulder Pain Raynaud's Disease Without Gangrene Smoker Mild Intermittent Asthma, Uncomplicated Eczema Scoliosis Dry Eye Syndrome of Both Eyes Elevated Blood Pressure Reading Without Diagnosis of Hypertension Seizure Disorder (Hcc) Social History Tobacco Use Smoking status: Every Day Packs/day: 0.50 Types: Cigarettes Start date: 10/27/1981 Smokeless tobacco: Never Substance Use Topics Alcohol use: No Drug use: No Family History Problem Relation Age of Onset Hypertension Father Heart Father Emphysema Father Diabetes Father Cataract Father Cancer Father skin cancer Amblyopia Other Arthritis Mother Thyroid Mother Glaucoma Mother Cervical Cancer Mother Cervical Cancer Sister other (Leukemia) Maternal Uncle Reviewed past medical history, family history and surgeries. All medications and supplements were reviewed with the patient. REVIEW OF SYSTEMS GENERAL: No weight loss, malaise or fevers HEENT: Negative for frequent or significant headaches, No changes in hearing or vision, no nose bleeds or other nasal problems NECK: Negative for lumps, goiter, pain and significant neck swelling RESPIRATORY: Negative for cough, hemoptysis, wheezing, COPD, dyspnea or shortness of breath CARDIOVASCULAR: Negative for chest pain, leg swelling, hypertension, CHF or palpitations GI: No nausea, vomiting, or diarrhea : No history of dysuria, frequency or incontinence MUSCULOSKELETAL: positive for hip, back pain and knee pain SKIN: Negative for lesions, rash, and itching PSYCH: Negative for sleep disturbance, mood disorder and recent psychosocial stressors HEMATOLOGY/LYMPHOLOGY: Negative for prolonged bleeding, bruising easily or swollen nodes ENDOCRINE: Negative for cold or heat intolerance, polyuria, polydipsia and goiter NEURO: No history of headaches, syncope, paralysis, seizures or tremors PHYSICAL EXAMINATION: BP 128/70 Pulse 81 Temp 36.8 ?C (98.2 ?F) Resp 16 Ht 157.5 cm (5' 2 ) Wt 62.8 kg (138 lb 6.4 (more content not included)... [facility] 12-16-2022 History of Present illness Narrative SUBJECTIVE: 57 year old female for annual checkup. I have fully reviewed the past medical, surgical, social and family history and updated the Histories section of [facility]. She has duputryn's contracture of both hands Left hand cannot be fully opened She has seen Dr. Orozco ortho, and plans to return to see him Her lower back and right hip have been bothering her, especially when she has been walking She has had multiple injections in the right knee, cannot get more, but does not want knee replacement surgery at this time Her mother is ill in palliative care and she is staying with her and helping her No LMP recorded. Patient is postmenopausal. ALLERGIES Allergen Reactions Asa [Aspirin] Itching Patient wanted med added to her allergy list Etodolac Swelling Lactose Swelling Patient wanted this added to her list Tylenol [Acetaminop* Unknown She states it causes elevated liver enzymes. She states she takes Percocet and [place] without problem Current Outpatient Medications Medication Sig Dispense Refill lamoTRIgine (LAMICTAL) 100 mg tablet Take 1 tablet by mouth twice daily. 180 tablet 3 methocarbamol (ROBAXIN) 500 mg tablet Take 500 mg by mouth four times daily. As needed DULoxetine (CYMBALTA) 60 mg capsule Take 1 capsule by mouth twice daily. (Patient taking differently: Take 60 mg by mouth twice daily. As needed) 60 capsule 2 RESTASIS 0.05 % ophthalmic emulsion diclofenac (VOLTAREN) 1 % topical gel Apply as directed. fluticasone (FLONASE) 50 mcg/actuation nasal spray USE 1 SPRAY IN EACH NOSTRIL AT BEDTIME NEEDED. 48 mL 1 rOPINIRole (REQUIP) 0.25 mg tablet Take 1 tablet by mouth every morning AND 2 tablets daily at bedtime. 1 tablet by mouth in the Amg, 2 tablets by mouth in the PM. 270 tablet 3 albuterol HFA (PROAIR HFA) 90 mcg/actuation inhaler Inhale 2 Puffs as instructed as needed. 1 Inhaler 0 B Complex Vitamins capsule vitamin B complex capsule Ascorbic Acid 100 mg tablet ascorbic acid 100 mg tablet lactase (LACTAID) 3,000 unit tablet Take 1 tablet by mouth three times daily as needed. 90 tablet 1 HYDROXYCHLOROQUINE 200 mg tablet Take 150 mg by mouth twice daily. No current facility-administered medications for this visit. ACTIVE PROBLEM LIST Cervicalgia Spondylosis of Cervical Region Without Myelopathy Or Radiculopathy Osteoarthritis of Spine With Radiculopathy, Lumbar Region Chronic Midline Low Back Pain Without Sciatica Bipolar 1 Disorder (Hcc) Adhd (Attention Deficit Hyperactivity Disorder) Tendonitis of Foot Systemic Lupus Erythematosus (Hcc) Elevated Liver Enzymes Restless Leg Syndrome Dupuytren Contracture Osteopenia Lactose Intolerance Encounter for Screening Colonoscopy Fatty Liver Disease, Nonalcoholic Chronic Right Shoulder Pain Raynaud's Disease Without Gangrene Smoker Mild Intermittent Asthma, Uncomplicated Eczema Scoliosis Dry Eye Syndrome of Both Eyes Elevated Blood Pressure Reading Without Diagnosis of Hypertension Seizure Disorder (Hcc) Social History Tobacco Use Smoking status: Every Day Packs/day: 0.50 Types: Cigarettes Start date: 10/27/1981 Smokeless tobacco: Never Substance Use Topics Alcohol use: No Drug use: No Family History Problem Relation Age of Onset Hypertension Father Heart Father Emphysema Father Diabetes Father Cataract Father Cancer Father skin cancer Amblyopia Other Arthritis Mother Thyroid Mother Glaucoma Mother Cervical Cancer Mother Cervical Cancer Sister other (Leukemia) Maternal Uncle Reviewed past medical history, family history and surgeries. All medications and supplements were reviewed with the patient. REVIEW OF SYSTEMS GENERAL: No weight loss, malaise or fevers HEENT: Negative for frequent or significant headaches, No changes in hearing or vision, no nose bleeds or other nasal problems NECK: Negative for lumps, goiter, pain and significant neck swelling RESPIRATORY: Negative for cough, hemoptysis, wheezing, COPD, dyspnea or shortness of breath CARDIOVASCULAR: Negative for chest pain, leg swelling, hypertension, CHF or palpitations GI: No nausea, vomiting, or diarrhea : No history of dysuria, frequency or incontinence MUSCULOSKELETAL: positive for hip, back pain and knee pain SKIN: Negative for lesions, rash, and itching PSYCH: Negative for sleep disturbance, mood disorder and recent psychosocial stressors HEMATOLOGY/LYMPHOLOGY: Negative for prolonged bleeding, bruising easily or swollen nodes ENDOCRINE: Negative for cold or heat intolerance, polyuria, polydipsia and goiter NEURO: No history of headaches, syncope, paralysis, seizures or tremors PHYSICAL EXAMINATION: BP 128/70 Pulse 81 Temp 36.8 C (98.2 F) Resp 16 Ht 157.5 cm (5' 2 ) Wt 62.8 kg (138 lb 6.4 oz) SpO2 99% BMI 25.31 kg/m General appearance: Well appearing, alert, in no acute distress, well-hydrated, well nourished. Skin: Skin color, texture, turgor normal, no suspicious rashes or lesions Head: Normocephalic, no masses, lesions, tenderness or abnormalities Eyes: Anicteric sclera. Pupils are equally round and reactive to light. Extraocular movements are intact. Ears: External ears normal, canals clear Nose/Sinuses: Nares normal, septum midline, mucosa normal, no drainage or sinus tenderness Oropharynx: Lips, mucosa, and tongue normal, teeth and gums normal, oropharynx normal Neck: Supple, no adenopathy; thyroid symmetric, normal size, no bruits Back: Normal exam Lungs: Lungs clear to auscultation. No wheezing, rhonchi, rales. Heart: RRR without murmur, gallop, or rubs. No ectopy Abdomen: Normal abdominal exam, Abdomen soft, non-tender. Bowel sounds normal. No masses, organomegaly Extremities:Nodes over right dorsal fifth digit Disfigured left hand with thickened skin on the left palm Musculoskeletal: No joint swelling, deformity, or tenderness Peripheral pulses: Normal Neuro: left hand cannot be fully opened, flight operations coordinator strength equal b/l ASSESSMENT/PLAN: 1. Well adult exam - ICD9: V70.0, ICD10: Z00.00 (primary diagnosis) - Counseled on healthy diet and regular exercise - Calcium intake with supplements or by diet of 1000 mg/day for under 50, 5107-9429 mg/day for 50+ 2. Screening for blood disease - ICD9: V78.9, ICD10: Z13.0 - CBC 3. Screening for endocrine, metabolic and immunity disorder - ICD9: V77.99, ICD10: Z13.29, Z13.228, Z13.0 - COMP METABOLIC PANEL 4. Screening for lipid disorders - ICD9: V77.91, ICD10: Z13.220 - LIPID PANEL BASIC 5. Seasonal allergic rhinitis, unspecified trigger - ICD9: 477.9, ICD10: J30.2 - FLUTICASONE PROPIONATE 50 MCG/ACTUATION NASAL SPRAY,SUSPENSION Sterling Morris DO documented in this encounter [facility] 06-26-2022 Miscellaneous Notes [facility] [address] [place] [address] June 26, 2022 PID: [id number] Krys Hanley [address] [facility] [address] [place] [address] Dear Ms. Hanley, We are pleased to inform you that the results of your recent breast imaging exam on 06/26/2022 are normal. Early detection of cancer is very important. We also understand recommendations regarding breast cancer screening are controversial. Please discuss with your primary care provider which strategy is best for you and whether a mammogram is right for you. Your imaging studies and report will be kept on file at [facility] as part of your permanent medical record and are available for your continuing care. Thank you for allowing us to help in meeting your health care needs. Sincerely, Dr. Blue Interpreting Radiologist [facility] (Normal over 40) documented in this encounter [facility] 07-05-2022 Miscellaneous Notes Pharmacy has valid script Dianelys Day MA documented in this encounter [facility] 03-28-2022 Sommer Sterling Morris, DO - 03/28/2022 11:11 AM EDT THE DASH DIFFERENCE High blood pressure affects 50 million Americans and is one of the leading causes or heart diseased and stroke. The eating plan shown below, from the Dietary Approaches to Stop Hypertension (DASH) study, is good news for those affected by or at risk for high blood pressure. As reported in the [place] Journal of Medicine, the DASH diet, which is low in fat and rich in low-fat milk, cheese and yogurt, fruits and vegetables, lowered blood pressure in individuals with both normal and elevated blood pressure. The use of foods lower in sodium made a slight improvement in blood pressure beyond what occurred with the low-fat dairy products, fruits and vegetables. The study was based on a 2000 calorie diet and contained the number of servings from each of the food groups shown in the chart below. For many people following the DASH eating plan can be an important and easy step in preventing or managing high blood pressure. The DASH Eating Style FOOD GROUP DAILY SERVINGS 1 SERVING EQUALS Milk and Dairy 2-3 8 oz low-fat milk 1 cup low-fat 1 oz low-fat cheese Fruits 4-5 1 medium fruit cup dried fruit cup frozen or canned fruit 6 oz fruit juice Vegetables 4-5 1 cup raw leafy vegetables cup cooked vegetables 6 oz vegetable juice Grain 7-8 1 slice bread cup dry or hot cereal cup cooked rice or pasta Meat, fish, Poultry 2 or less 3 oz cooked meat, poultry, or fish Nuts, Seeds, Dried Beans 4-5 per week 1/3 cup nuts 2 tbsp seeds cup cooked dried beans Sample DASH Menu Breakfast 1 cup corn flakes (with 1 tsp sugar) 8 oz low-fat milk 1 banana 1 slice whole wheat toast 1 tbsp jelly grapefruit Lunch 2 oz sliced turkey 1 rodger bread 1 tbsp low-fat mayonnaise cup fruit cocktail in light syrup Raw vegetable medley with: 3-4 sticks of each carrot and celery 2 radishes 2 loose leaf lettuce leaves Snack cup dried apricots cup mini pretzels 1/3 cup mixed nuts 1 cup flavored low-fat yogurt Dinner 3 oz grilled lean beef 1 cup scallion rice 1 cup steamed broccoli 8 oz low-fat chocolate milk Spinach salad with cup raw spinach 2 chin tomatoes 2 cucumber slices 10 Ways to DASH Up Your Dining 1.) Re-think your drink! Make low-fat milk your beverage of choice: order it when dining out. 2.) Pizza, Pizza, Pizza! Combine a pre-made pizza crust with pizza sauce, shredded low-fat mozzarella and lots of vegetable toppings fresh tomatoes, zucchini, spinach, carrot curls, cauliflower, broccoli and artichoke hearts for a totally awesome creation. 3.) Start Your Day with whole grain cereal and low-fat milk. 4.) Make it with Milk! Use low-fat milk in place of water when cooking, especially with oatmeal, boxed rice and pasta dishes 5.) For That Snack Attack: Serve cereal with low-fat milk and fresh fruit. For a tangy twist, layer flavored low-fat yogurt with cereal to create yogurt sundaes. 6.) Make Super Soup! Prepare soup with low-fat milk instead of water. Add fresh, canned or frozen vegetables to prepared soups. 7.) Shake em Up! Create well shooter drinks. Start with a cup of low-fat milk, add frozen fruit chunks and flavoring to make your own smoothie drink. 8.) Creat a Baked Potato Bar! Serve baked potatoes with a variety of toppings like low-fat cheese, chili, refried beans, salsa or broccoli. Add them up one meal could contain three or four vegetable servings! 9.) Encourage Big Dippers! Make a fruit dip by sprinkling cinnamon into vanilla low-fat yogurt. For a quick vegetable dip, add ranch seasoning or chopped chives to plain low-fat yogurt. 10.) Say Cheese! Top Steamed vegetables with shredded low-fat cheese. documented in this encounter [facility] 03-28-2022 History of Present illness Narrative Subjective HPI Pt here for 6 month f/u for RLS She is taking requip, which is working well for her She was seeing a psychiatrist, but has had trouble getting an appt because of Covid 19, so she weaned off many of her meds which were prescribed by them She was taking cymbalta, would like to restart it for her aches and pains She does not think she needs gabapentin anymore She was taking lamictal for seizures She was seeing a neurologist who has retired She takes hydroxychlorquine for lupus She has been having worsening pain in her lower back She has a history of scoliosis She cannot sit in a low chair, because she cannot get up The pain is mostly on the right, worse with sitting She cannot go to physical therapy because she is taking care of her mom who has pulmonary fibrosis Her BP is elevated today because of her pain She smokes 1/2 PPD ALLERGIES Allergen Reactions Asa [Aspirin] Itching Patient wanted med added to her allergy list Etodolac Swelling Lactose Swelling Patient wanted this added to her list Tylenol [Acetaminop* Unknown She states it causes elevated liver enzymes. She states she takes Percocet and [place] without problem Current Outpatient Medications Medication Sig Dispense Refill methocarbamol (ROBAXIN) 500 mg tablet Take 500 mg by mouth four times daily. RESTASIS 0.05 % ophthalmic emulsion diclofenac (VOLTAREN) 1 % topical gel Apply as directed. fluticasone (FLONASE) 50 mcg/actuation nasal spray USE 1 SPRAY IN EACH NOSTRIL AT BEDTIME NEEDED. 48 mL 1 rOPINIRole (REQUIP) 0.25 mg tablet Take 1 tablet by mouth every morning AND 2 tablets daily at bedtime. 1 tablet by mouth in the Amg, 2 tablets by mouth in the PM. 270 tablet 3 albuterol HFA (PROAIR HFA) 90 mcg/actuation inhaler Inhale 2 Puffs as instructed as needed. 1 Inhaler 0 B Complex Vitamins capsule vitamin B complex capsule Ascorbic Acid 100 mg tablet ascorbic acid 100 mg tablet lactase (LACTAID) 3,000 unit tablet Take 1 tablet by mouth three times daily as needed. 90 tablet 1 HYDROXYCHLOROQUINE 200 mg tablet Take 150 mg by mouth twice daily. carBAMazepine ER (EQUETRO) 100 mg 12 hr capsule Take 1 capsule by mouth twice daily. (Patient not taking: Reported on 03/28/2022 ) 0 CYMBALTA 60 mg capsule Take 60 mg by mouth twice daily. (Patient not taking: Reported on 03/28/2022 ) GABAPENTIN 300 mg capsule Take 300 mg by mouth three times daily. (Patient not taking: Reported on 03/28/2022) lamoTRIgine (LAMICTAL) 100 mg tablet Take 100 mg by mouth twice daily. (Patient not taking: Reported on 03/28/2022 ) No current facility-administered medications for this visit. ACTIVE PROBLEM LIST Cervicalgia Spondylosis of Cervical Region Without Myelopathy Or Radiculopathy Osteoarthritis of Spine With Radiculopathy, Lumbar Region Chronic Midline Low Back Pain With Sciatica Epilepsy, Partial (Hcc) Bipolar 1 Disorder (Hcc) Adhd (Attention Deficit Hyperactivity Disorder) Tendonitis of Foot Depression Systemic Lupus Erythematosus (Hcc) Elevated Liver Enzymes Restless Leg Syndrome Dupuytren Contracture Osteopenia Lactose Intolerance Bloating Encounter for Screening Colonoscopy Fatty Liver Disease, Nonalcoholic Chronic Right Shoulder Pain Raynaud's Disease Without Gangrene Smoker Mild Intermittent Asthma, Uncomplicated Eczema Scoliosis Dry Eye Syndrome of Both Eyes Social History Tobacco Use Smoking status: Current Every Day Smoker Packs/day: 0.50 Types: Cigarettes Start date: 10/27/1981 Smokeless tobacco: Never Used Substance Use Topics Alcohol use: No Drug use: No Family History Problem Relation Age of Onset Hypertension Father Heart Father Emphysema Father Diabetes Father Cataract Father Cancer Father skin cancer Amblyopia Other Arthritis Mother Thyroid Mother Glaucoma Mother Cervical Cancer Mother Cervical Cancer Sister other (Leukemia) Maternal Uncle Reviewed past medical history, family history and surgeries. All medications and supplements were reviewed with the patient. Pt sees the following specialists: Dr. Alcala, chart collector Review of Systems Constitutional: Negative for chills, diaphoresis, fever, malaise/fatigue and weight loss. HENT: Negative for ear pain and hearing loss. Eyes: Negative for blurred vision and double vision. Respiratory: Negative for cough and shortness of breath. Cardiovascular: Negative for chest pain, palpitations and leg swelling. Gastrointestinal: Negative for constipation, diarrhea and heartburn. Genitourinary: Negative for dysuria and frequency. Musculoskeletal: Positive for back pain. Negative for falls, joint pain and myalgias. Skin: Negative for itching and rash. Neurological: Negative for dizziness, weakness and headaches. Endo/Heme/Allergies: Does not bruise/bleed easily. Psychiatric/Behavioral: Negative for depression and substance abuse. The patient does not have insomnia. Objective BP 138/78 (BP Site: Right Arm, BP Position: Sitting, BP Cuff Size: Regular Adult) Pulse 64 Temp 36.6 C (97.9 F) Resp 18 Ht 157.5 cm (5' 2 ) Wt 66 kg (145 lb 6.4 oz) BMI 26.59 kg/m Physical Exam Constitutional: Appearance: Normal appearance. HENT: Head: Normocephalic and atraumatic. Nose: Nose normal. Mouth/Throat: Mouth: Mucous membranes are moist. Dentition: Normal dentition. Eyes: General: Lids are normal. Extraocular Movements: Extraocular movements intact. Conjunctiva/sclera: Conjunctivae normal. Pupils: Pupils are equal, round, and reactive to light. Neck: Thyroid: No thyroid mass or thyromegaly. Vascular: No carotid bruit. Trachea: Phonation normal. Cardiovascular: Rate and Rhythm: Normal rate and regular rhythm. Heart sounds: Normal heart sounds. No murmur heard. No friction rub. No gallop. Pulmonary: Effort: Pulmonary effort is normal. Breath sounds: Normal breath sounds. No wheezing or rales. Abdominal: General: Bowel sounds are normal. There is no distension. Palpations: Abdomen is soft. There is no mass. Tenderness: There is no abdominal tenderness. Musculoskeletal: General: Tenderness (over paraspinous muscles of LS spine on right, tender in right sciatic notch, no midline bony tenderness of lumbar spine) present. No swelling. Normal range of motion. Cervical back: Normal range of motion and neck supple. No edema. Lymphadenopathy: Cervical: No cervical adenopathy. Skin: General: Skin is warm and dry. Findings: No erythema or rash. Nails: There is no clubbing. Neurological: Mental Status: She is alert and oriented to person, place, and time. Cranial Nerves: No cranial nerve deficit. Motor: Motor function is intact. Coordination: Coordination normal. Gait: Gait is intact. Psychiatric: Attention and Perception: Attention normal. Mood and Affect: Mood and affect normal. Speech: Speech normal. Behavior: Behavior normal. Behavior is cooperative. Thought Content: Thought content normal. Cognition and Memory: Cognition and memory normal. Judgment: Judgment normal. ASSESSMENT/PLAN: 1. Restless leg syndrome - ICD9: 333.94, ICD10: G25.81 (primary diagnosis) Controlled with requip 1 in the morning and 2 at bedtime 2. Chronic midline low back pain without sciatica - ICD9: 724.2, 338.29, ICD10: M54.50, G89.29 - METHOCARBAMOL 500 MG TABLET - XR LUMBAR PARS DEFECT 4V AP/LAT/BOTH OBL 3. Seizure disorder (HCC) - ICD9: 345.90, ICD10: G40.909 - LAMOTRIGINE 100 MG TABLET 4. Elevated blood pressure reading without diagnosis of hypertension - ICD9: 796.2, ICD10: R03.0 BP elevated today because of low back pain Pt does not want to start on antihypertensives at this time 5. Systemic lupus erythematosus, unspecified SLE type, unspecified organ involvement status (HCC) - ICD9: 710.0, ICD10: M32.9 Under the care of Dr. Alcala, chart collector Takes plaquenil 6. Bipolar 1 disorder (HCC) - ICD9: 296.7, ICD10: F31.9 Continue DULOXETINE 60 MG CAPSULE,DELAYED RELEASE 7. Smoker - ICD9: 305.1, ICD10: F17.200 Cessation encouraged Sterling Morris DO documented in this encounter [facility] documented as of this encounter (statuses as of 03/29/2022) [facility] History of Past illness Narrative* Problem Noted Date Resolved Date Finger mass, left 05/22/2017 04/07/2018 Trigger finger of left thumb 05/22/201709/2018 Closed fracture of distal end of radius 03/28/20 17 04/07/2018 Lupus (systemic lupus erythematosus) 01/07/2017 08/19/2017 Low back pain 10/13/2014 03/21/2016 Lumbosacral neuritis 10/13/2014 03/21/2016 Lumbar spondylosis 10/13/2014 03/21/2016 Shoulder impingement 03/07/2014 05/04/2018 Depressed 03/07/2014 08/19/2017 Cervical spondylosis 03/07/2014 06/18/2016 Cervical myofascial pain syndrome 03/07/2014 05/04/2018 Shoulder pain 01/27/2014 05/04/2018 documented as of this encounter (statuses as of 04/11/2022) [facility] History of Past illness Narrative* Problem Noted Date Resolved Date Finger mass, left 05/22/2017 04/07/2018 Trigger finger of left thumb 05/22/201709/2018 Closed fracture of distal end of radius 03/28/20 17 04/07/2018 Lupus (systemic lupus erythematosus) 01/07/2017 08/19/2017 Low back pain 10/13/2014 03/21/2016 Lumbosacral neuritis 10/13/2014 03/21/2016 Lumbar spondylosis 10/13/2014 03/21/2016 Shoulder impingement 03/07/2014 05/04/2018 Depressed 03/07/2014 08/19/2017 Cervical spondylosis 03/07/2014 06/18/2016 Cervical myofascial pain syndrome 03/07/2014 05/04/2018 Shoulder pain 01/27/2014 05/04/2018 documented as of this encounter (statuses as of 04/22/2022) [facility] History of Past illness Narrative* Problem Noted Date Resolved Date Finger mass, left 05/22/2017 04/07/2018 Trigger finger of left thumb 05/22/201709/2018 Closed fracture of distal end of radius 03/28/20 17 04/07/2018 Lupus (systemic lupus erythematosus) 01/07/2017 08/19/2017 Low back pain 10/13/2014 03/21/2016 Lumbosacral neuritis 10/13/2014 03/21/2016 Lumbar spondylosis 10/13/2014 03/21/2016 Shoulder impingement 03/07/2014 05/04/2018 Depressed 03/07/2014 08/19/2017 Cervical spondylosis 03/07/2014 06/18/2016 Cervical myofascial pain syndrome 03/07/2014 05/04/2018 Shoulder pain 01/27/2014 05/04/2018 documented as of this encounter (statuses as of 04/30/2022) [facility] History of Past illness Narrative* Problem Noted Date Resolved Date Finger mass, left 05/22/2017 04/07/2018 Trigger finger of left thumb 05/22/201709/2018 Closed fracture of distal end of radius 03/28/20 17 04/07/2018 Lupus (systemic lupus erythematosus) 01/07/2017 08/19/2017 Low back pain 10/13/2014 03/21/2016 Lumbosacral neuritis 10/13/2014 03/21/2016 Lumbar spondylosis 10/13/2014 03/21/2016 Shoulder impingement 03/07/2014 05/04/2018 Depressed 03/07/2014 08/19/2017 Cervical spondylosis 03/07/2014 06/18/2016 Cervical myofascial pain syndrome 03/07/2014 05/04/2018 Shoulder pain 01/27/2014 05/04/2018 documented as of this encounter (statuses as of 06/28/2022) [facility] History of Past illness Narrative* Problem Noted Date Resolved Date Finger mass, left 05/22/2017 04/07/2018 Trigger finger of left thumb 05/22/201709/2018 Closed fracture of distal end of radius 03/28/20 17 04/07/2018 Lupus (systemic lupus erythematosus) 01/07/2017 08/19/2017 Low back pain 10/13/2014 03/21/2016 Lumbosacral neuritis 10/13/2014 03/21/2016 Lumbar spondylosis 10/13/2014 03/21/2016 Shoulder impingement 03/07/2014 05/04/2018 Depressed 03/07/2014 08/19/2017 Cervical spondylosis 03/07/2014 06/18/2016 Cervical myofascial pain syndrome 03/07/2014 05/04/2018 Shoulder pain 01/27/2014 05/04/2018 documented as of this encounter (statuses as of 12/27/2022) [facility] History of Past illness Narrative* Problem Noted Date Resolved Date Finger mass, left 05/22/2017 04/07/2018 Trigger finger of left thumb 05/22/201709/2018 Closed fracture of distal end of radius 03/28/20 17 04/07/2018 Lupus (systemic lupus erythematosus) 01/07/2017 08/19/2017 Low back pain 10/13/2014 03/21/2016 Lumbosacral neuritis 10/13/2014 03/21/2016 Lumbar spondylosis 10/13/2014 03/21/2016 Shoulder impingement 03/07/2014 05/04/2018 Depressed 03/07/2014 08/19/2017 Cervical spondylosis 03/07/2014 06/18/2016 Cervical myofascial pain syndrome 03/07/2014 05/04/2018 Shoulder pain 01/27/2014 05/04/2018 documented as of this encounter (statuses as of 01/01/2023) [facility] History of Past illness Narrative* Problem Noted Date Resolved Date Finger mass, left 05/22/2017 04/07/2018 Trigger finger of left thumb 05/22/201709/2018 Closed fracture of distal end of radius 03/28/20 17 04/07/2018 Lupus (systemic lupus erythematosus) 01/07/2017 08/19/2017 Low back pain 10/13/2014 03/21/2016 Lumbosacral neuritis 10/13/2014 03/21/2016 Lumbar spondylosis 10/13/2014 03/21/2016 Shoulder impingement 03/07/2014 05/04/2018 Depressed 03/07/2014 08/19/2017 Cervical spondylosis 03/07/2014 06/18/2016 Cervical myofascial pain syndrome 03/07/2014 05/04/2018 Shoulder pain 01/27/2014 05/04/2018 documented as of this encounter (statuses as of 04/10/2023) [facility] History of Past illness Narrative* Problem Noted Date Resolved Date Finger mass, left 05/22/2017 04/07/2018 Trigger finger of left thumb 05/22/201709/2018 Closed fracture of distal end of radius 03/28/20 17 04/07/2018 Lupus (systemic lupus erythematosus) 01/07/2017 08/19/2017 Low back pain 10/13/2014 03/21/2016 Lumbosacral neuritis 10/13/2014 03/21/2016 Lumbar spondylosis 10/13/2014 03/21/2016 Shoulder impingement 03/07/2014 05/04/2018 Depressed 03/07/2014 08/19/2017 Cervical spondylosis 03/07/2014 06/18/2016 Cervical myofascial pain syndrome 03/07/2014 05/04/2018 Shoulder pain 01/27/2014 05/04/2018 documented as of this encounter (statuses as of 04/15/2023) [facility] note* Diagnosis Chronic midline low back pain without sciatica documented in this encounter [facility] note* Diagnosis Restless leg syndrome- Primary Restless legs syndrome (RLS) Chronic midline low back pain without sciatica Seizure disorder (HCC) Unspecified epilepsy without mention of intractable epilepsy Elevated blood pressure reading without diagnosis of hypertension Systemic lupus erythematosus, unspecified SLE type, unspecified organ involvement status (HCC) Bipolar 1 disorder (HCC) Bipolar I disorder, most recent episode (or current) unspecified Smoker Tobacco use disorder [facility] Diagnosis Seizure disorder (HCC) Unspecified epilepsy without mention of intractable epilepsy documented in this encounter [facility] note* Diagnosis Bipolar 1 disorder (HCC) Bipolar I disorder, most recent episode (or current) unspecified [facility] Diagnosis Well adult exam- Primary Routine general medical examination at a health care facility Screening for blood disease Screening for unspecified disorder of blood and blood-forming organs Screening for endocrine, metabolic and immunity disorder Screening for lipid disorders Seasonal allergic rhinitis, unspecified trigger [facility] Diagnosis Abnormal mammogram- Primary Abnormal mammogram, unspecified documented in this encounter [facility] note* Diagnosis Systemic lupus erythematosus, unspecified SLE type, unspecified organ involvement status (CMS/HCC)- Primary Encounter for monitoring of hydroxychloroquine therapy Bipolar 1 disorder (CMS/HCC) Seizure disorder (CMS/HCC) Unspecified epilepsy without mention of intractable epilepsy Mild intermittent asthma, uncomplicated documented in this encounter [facility] Work Phone: History of Present illness Narrative* foot swelling * R knee * R sciatica * Duypretren's--hands, feet * ganglion cyst R * 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 * Interval Events: Was in ED recently for injury--continues to pain in the rib cage due to the injury. Has developed a ganglion cyst on wrist. +fatigue and joint pain . * Associated symptoms: +depression--stable. * Medications: the patient is adherent to her medication regimen, but she denies medication side effects. [facility] Work Phone: History of Present illness Narrative* The patient is being seen for follow-up of systemic lupus erythematosus. * Interval Events: Patient reports that she has some chronic foot swelling which is affecting her ability to wear any shoes. She continues to have lots of problems with her right knee right-sided sciatica Dupuytren's contractures and has developed a new right ganglion cyst on her wrist. She is seeing specialists for all of this. Because of her hand symptoms she does have trouble with handgrip but overall has not developed any new symptoms. * Medications: the patient is adherent to her medication regimen, but she denies medication side effects. [facility] Work Phone: History of Present illness Narrative* The patient is being seen for follow-up of systemic lupus erythematosus. * Interval Events: pt reports she is under a lot of stress--caring for her mom. She states the Dupuytren's is worsening in her hands and she also has it on her feet. She continues to have hip pain and found to have scolioisis with a 13 degree curve to the left. She is seeing orthopedics on a regular basis. She does have leg swelling periodically but it is better today . * Medications: the patient is adherent to her medication regimen, but she denies medication side effects. [facility] Work Phone: History of Present illness Narrative* The patient is being seen for follow-up of systemic lupus erythematosus. * Interval Events: pt under stress due to her mother's illness. Has developed worsening Dupuytren's and hasn't scheduled to see ortho--her finger is now stuck . * Medications: the patient is adherent to her medication regimen, but she denies medication side effects. [facility] [address] Work Phone: Reason for referral (narrative)* Diagnostic Procedure Only (Routine) - Closed Specialty Diagnoses / Procedures Referred By Brandie t Referred To Contact XR IMAGING Diagnoses Chronic midline low back pain without sciatica Procedures XR LUMBAR PARS DEFECT 4V AP/LAT/BOTH OBL RADEX SPINE LUMBOSACRAL MINIMUM 4 VIEWS Arturo, Sterling Sun DO [address] [place] [address] Xr Imaging Referral ID Status Reason Start Date Expiration Date V isits Requested Visits Authorized [id number] Closed Auto-Generate d Referral 03/28/2022 04/27/2023 1 1 [facility] for referral (narrative)* Diagnostic Procedure Only (Routine) - Closed Specialty Diagnoses / Procedures Referred By Contac t Referred To Contact XR IMAGING Diagnoses Chronic midline low back pain without sciatica Procedures XR LUMBAR PARS DEFECT 4V AP/LAT/BOTH OBL RADEX SPINE LUMBOSACRAL MINIMUM 4 VIEWS Sterling Morris, DO [address] [place] [address] Xr Imaging Referral ID Status Reason Start Date Expiration Date V isits Requested Visits Authorized [id number] Closed Auto-Generate d Referral 03/28/2022 04/27/2023 1 1 T [facility] for referral (narrative)* Diagnostic Procedure Only (Routine) - Pending Review Specialty Diagnoses / Procedures Referred By Contac t Referred To Contact BR IMAGING Diagnoses Abnormal mammogram Procedures US BREAST LTD RIGHT US BREAST UNI REAL TIME WITH IMAGE LIMITED Sterling Morris, DO [address] [place] [address] [facility] [address] [place] [address] Referral ID Status Reason Start Date Expiration Date Visits Requested Visits Authorized [id number] Pending Review Auto-Generat ed Referral 04/11/2023 05/10/2024 1 1 T [facility] for visit Narrative* Diagnostic Procedure Only (Routine) - Closed Specialty Diagnoses / Procedures Referred By Contac t Referred To Contact XR IMAGING Diagnoses Chronic midline low back pain without sciatica Procedures XR LUMBAR PARS DEFECT 4V AP/LAT/BOTH OBL RADEX SPINE LUMBOSACRAL MINIMUM 4 VIEWS Sterling Morris, DO [address] [place] [address] Xr Imaging Referral ID Status Reason Start Date Expiration Date V isits Requested Visits Authorized [id number] Closed Auto-Generate d Referral 03/28/2022 04/27/2023 1 1 [facility] Summary Purpose Family History No Family History Records Found uncle Name Dates Details Family history of leukemia(V 16.6, Z80.6) Status:Active Mother Name Dates Details Family history of osteoarthr itis(V17.89, Z82.69) Status:Active Family history of hypertensi on(V17.49, Z82.49) Status:Active Father Name Dates Details Family history of osteoarthr itis(V17.89, Z82.69) Status:Active Family history of psoriasis( V19.4, Z84.0) Status:Active Family history of diabetes m ellitus(V18.0, Z83.3) Status:Active Family history of coronary a rtery disease(V17.3, Z82.49) Status:Active Unknown Family Member Name Dates Details Family history of osteoarthr itis: Mother, Father(V17.89, Z82.69) Status:Active Family history of hypertensi on: Mother(V17.49, Z82.49) Status:Active Family history of psoriasis: Father(V19.4, Z84.0) Status:Active Family history of diabetes m ellitus: Father(V18.0, Z83.3) Status:Active Family history of leukemia: Uncle(V16.6, Z80.6) Status:Active Family history of coronary a rtery disease: Father(V17.3, Z82.49) Status:Active Unknown Family Member Name Dates Details Family history of osteoarthr itis: Mother, Father(V17.89, Z82.69) Status:Active Family history of hypertensi on: Mother(V17.49, Z82.49) Status:Active Family history of psoriasis: Father(V19.4, Z84.0) Status:Active Family history of diabetes m ellitus: Father(V18.0, Z83.3) Status:Active Family history of leukemia: Uncle(V16.6, Z80.6) Status:Active Family history of coronary a rtery disease: Father(V17.3, Z82.49) Status:Active Unknown Family Member Name Dates Details Family history of osteoarthr itis: Mother, Father(V17.89, Z82.69) Status:Active Family history of hypertensi on: Mother(V17.49, Z82.49) Status:Active Family history of psoriasis: Father(V19.4, Z84.0) Status:Active Family history of diabetes m ellitus: Father(V18.0, Z83.3) Status:Active Family history of leukemia: Uncle(V16.6, Z80.6) Status:Active Family history of coronary a rtery disease: Father(V17.3, Z82.49) Status:Active Unknown Family Member Name Dates Details Family history of osteoarthr itis: Mother, Father(V17.89, Z82.69) Status:Active Family history of hypertensi on: Mother(V17.49, Z82.49) Status:Active Family history of psoriasis: Father(V19.4, Z84.0) Status:Active Family history of diabetes m ellitus: Father(V18.0, Z83.3) Status:Active Family history of leukemia: Uncle(V16.6, Z80.6) Status:Active Family history of coronary a rtery disease: Father(V17.3, Z82.49) Status:Active Unknown Family Member Name Dates Details Family history of osteoarthr itis: Mother, Father(V17.89, Z82.69) Status:Active Family history of hypertensi on: Mother(V17.49, Z82.49) Status:Active Family history of psoriasis: Father(V19.4, Z84.0) Status:Active Family history of diabetes m ellitus: Father(V18.0, Z83.3) Status:Active Family history of leukemia: Uncle(V16.6, Z80.6) Status:Active Family history of coronary a rtery disease: Father(V17.3, Z82.49) Status:Active Unknown Family Member Name Dates Details Family history of osteoarthr itis: Mother, Father(V17.89, Z82.69) Status:Active Family history of hypertensi on: Mother(V17.49, Z82.49) Status:Active Family history of psoriasis: Father(V19.4, Z84.0) Status:Active Family history of diabetes m ellitus: Father(V18.0, Z83.3) Status:Active Family history of leukemia: Uncle(V16.6, Z80.6) Status:Active Family history of coronary a rtery disease: Father(V17.3, Z82.49) Status:Active Unknown Family Member Name Dates Details Family history of osteoarthr itis: Mother, Father(V17.89, Z82.69) Status:Active Family history of hypertensi on: Mother(V17.49, Z82.49) Status:Active Family history of psoriasis: Father(V19.4, Z84.0) Status:Active Family history of diabetes m ellitus: Father(V18.0, Z83.3) Status:Active Family history of leukemia: Uncle(V16.6, Z80.6) Status:Active Family history of coronary a rtery disease: Father(V17.3, Z82.49) Status:Active Unknown Family Member Name Dates Details Family history of osteoarthr itis: Mother, Father(V17.89, Z82.69) Status:Active Family history of hypertensi on: Mother(V17.49, Z82.49) Status:Active Family history of psoriasis: Father(V19.4, Z84.0) Status:Active Family history of diabetes m ellitus: Father(V18.0, Z83.3) Status:Active Family history of leukemia: Uncle(V16.6, Z80.6) Status:Active Family history of coronary a rtery disease: Father(V17.3, Z82.49) Status:Active Unknown Family Member Name Dates Details Family history of osteoarthr itis: Mother, Father(V17.89, Z82.69) Status:Active Family history of hypertensi on: Mother(V17.49, Z82.49) Status:Active Family history of psoriasis: Father(V19.4, Z84.0) Status:Active Family history of diabetes m ellitus: Father(V18.0, Z83.3) Status:Active Family history of leukemia: Uncle(V16.6, Z80.6) Status:Active Family history of coronary a rtery disease: Father(V17.3, Z82.49) Status:Active Unknown Family Member Name Dates Details Family history of osteoarthr itis: Mother, Father(V17.89, Z82.69) Status:Active Family history of hypertensi on: Mother(V17.49, Z82.49) Status:Active Family history of psoriasis: Father(V19.4, Z84.0) Status:Active Family history of diabetes m ellitus: Father(V18.0, Z83.3) Status:Active Family history of leukemia: Uncle(V16.6, Z80.6) Status:Active Family history of coronary a rtery disease: Father(V17.3, Z82.49) Status:Active Family history of cystic fib rosis: Mother(V18.19, Z83.49) Status:Active Unknown Family Member Name Dates Details Family history of osteoarthr itis: Mother, Father(V17.89, Z82.69) Status:Active Family history of hypertensi on: Mother(V17.49, Z82.49) Status:Active Family history of psoriasis: Father(V19.4, Z84.0) Status:Active Family history of diabetes m ellitus: Father(V18.0, Z83.3) Status:Active Family history of leukemia: Uncle(V16.6, Z80.6) Status:Active Family history of coronary a rtery disease: Father(V17.3, Z82.49) Status:Active Family history of cystic fib rosis: Mother(V18.19, Z83.49) Status:Active Unknown Family Member Name Dates Details Family history of osteoarthr itis: Mother, Father(V17.89, Z82.69) Status:Active Family history of hypertensi on: Mother(V17.49, Z82.49) Status:Active Family history of psoriasis: Father(V19.4, Z84.0) Status:Active Family history of diabetes m ellitus: Father(V18.0, Z83.3) Status:Active Family history of leukemia: Uncle(V16.6, Z80.6) Status:Active Family history of coronary a rtery disease: Father(V17.3, Z82.49) Status:Active Family history of cystic fib rosis: Mother(V18.19, Z83.49) Status:Active Unknown Family Member Name Dates Details Family history of osteoarthr itis: Mother, Father(V17.89, Z82.69) Status:Active Family history of hypertensi on: Mother(V17.49, Z82.49) Status:Active Family history of psoriasis: Father(V19.4, Z84.0) Status:Active Family history of diabetes m ellitus: Father(V18.0, Z83.3) Status:Active Family history of leukemia: Uncle(V16.6, Z80.6) Status:Active Family history of coronary a rtery disease: Father(V17.3, Z82.49) Status:Active Family history of cystic fib rosis: Mother(V18.19, Z83.49) Status:Active Unknown Family Member Name Dates Details Family history of osteoarthr itis: Mother, Father(V17.89, Z82.69) Status:Active Family history of hypertensi on: Mother(V17.49, Z82.49) Status:Active Family history of psoriasis: Father(V19.4, Z84.0) Status:Active Family history of diabetes m ellitus: Father(V18.0, Z83.3) Status:Active Family history of leukemia: Uncle(V16.6, Z80.6) Status:Active Family history of coronary a rtery disease: Father(V17.3, Z82.49) Status:Active Family history of cystic fib rosis: Mother(V18.19, Z83.49) Status:Active Unknown Family Member Name Dates Details Family history of osteoarthr itis: Mother, Father(V17.89, Z82.69) Status:Active Family history of hypertensi on: Mother(V17.49, Z82.49) Status:Active Family history of psoriasis: Father(V19.4, Z84.0) Status:Active Family history of diabetes m ellitus: Father(V18.0, Z83.3) Status:Active Family history of leukemia: Uncle(V16.6, Z80.6) Status:Active Family history of coronary a rtery disease: Father(V17.3, Z82.49) Status:Active Family history of cystic fib rosis: Mother(V18.19, Z83.49) Status:Active Unknown Family Member Name Dates Details Family history of osteoarthr itis: Mother, Father(V17.89, Z82.69) Status:Active Family history of hypertensi on: Mother(V17.49, Z82.49) Status:Active Family history of psoriasis: Father(V19.4, Z84.0) Status:Active Family history of diabetes m ellitus: Father(V18.0, Z83.3) Status:Active Family history of leukemia: Uncle(V16.6, Z80.6) Status:Active Family history of coronary a rtery disease: Father(V17.3, Z82.49) Status:Active Family history of cystic fib rosis: Mother(V18.19, Z83.49) Status:Active Unknown Family Member Name Dates Details Family history of osteoarthr itis: Mother, Father(V17.89, Z82.69) Status:Active Family history of hypertensi on: Mother(V17.49, Z82.49) Status:Active Family history of psoriasis: Father(V19.4, Z84.0) Status:Active Family history of diabetes m ellitus: Father(V18.0, Z83.3) Status:Active Family history of leukemia: Uncle(V16.6, Z80.6) Status:Active Family history of coronary a rtery disease: Father(V17.3, Z82.49) Status:Active Family history of cystic fib rosis: Mother(V18.19, Z83.49) Status:Active Unknown Family Member Name Dates Details Family history of osteoarthr itis: Mother, Father(V17.89, Z82.69) Status:Active Family history of hypertensi on: Mother(V17.49, Z82.49) Status:Active Family history of psoriasis: Father(V19.4, Z84.0) Status:Active Family history of diabetes m ellitus: Father(V18.0, Z83.3) Status:Active Family history of leukemia: Uncle(V16.6, Z80.6) Status:Active Family history of coronary a rtery disease: Father(V17.3, Z82.49) Status:Active Family history of cystic fib rosis: Mother(V18.19, Z83.49) Status:Active Advance Directives No Advanced Directives Records FoundDocuments on File Type Date Recorded Patient 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 Expl anation Advance Directive(s) 12/31/2020 9:15 PM Advance Directive(s) 06/01/2019 2:44 PM Advance Directive(s) 04/13/2018 8:28 AM Advance Directive(s) 03/31/2018 10:56 AM Advance Directive(s) 01/14/2018 3:51 AM Advance Directive(s) 10/24/2017 5:49 PM Advance Directive(s) 04/15/2017 3:00 PM Documents on File Type Date Recorded Patient 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 Expl anation Advance Directive(s) 12/31/2020 9:15 PM Advance Directive(s) 06/01/2019 2:44 PM Advance Directive(s) 04/13/2018 8:28 AM Advance Directive(s) 03/31/2018 10:56 AM Advance Directive(s) 01/14/2018 3:51 AM Advance Directive(s) 10/24/2017 5:49 PM Advance Directive(s) 04/15/2017 3:00 PM Chief Complaint Lupus 6 month F/ULupus 6 month F/U* 1540) Patient referred for a Fibroscan with a diagnosis of NAFLD. Patient identified X 2 and confirmed fasting for >3 hours. * Fibroscan study completed using medium probe and 10 valid measurements obtained. Patient tolerated procedure well. * Results: Median= 5.4 kPa * IQR= 0.6 * IQR/ med= 11 % * CAP= 268 dB/m * Patient advised the physician will read the study and review the results at her next appointment.. * Ervin Alvarado RN * 1540) Patient referred for a Fibroscan with a diagnosis of NAFLD. Patient identified X 2 and confirmed fasting for >3 hours. * Fibroscan study completed using medium probe and 10 valid measurements obtained. Patient tolerated procedure well. * Results: Median= 5.4 kPa * IQR= 0.6 * IQR/ med= 11 % * CAP= 268 dB/m * Patient advised the physician will read the study and review the results at her next appointment.. * Ervin Alvarado RN 56 year old here for 6 months f/u lupus.follow up for lupus Additional Source Comments INFORMATION SOURCE (unrecogn ized section and content) DATE CREATED AUTHOR AUTHOR'S ORGANIZ ATION 04/22/2018 [facility] DATE CREATED AUTHOR AUTHOR'S ORGANIZ ATION 01/01/2021 [facility] DATE CREATED AUTHOR AUTHOR'S ORGANIZ ATION 04/09/2023 [facility] DATE CREATED AUTHOR AUTHOR'S ORGANIZ ATION 05/30/2023 [facility] DATE CREATED AUTHOR AUTHOR'S ORGANIZ ATION 05/30/2023 [employer] DATE CREATED AUTHOR AUTHOR'S ORGANIZ ATION 06/05/2023 [facility] DATE CREATED AUTHOR AUTHOR'S ORGANIZ ATION 10/11/2023 [facility] DATE CREATED AUTHOR AUTHOR'S ORGANIZ ATION 10/13/2023 [facility] DATE CREATED AUTHOR AUTHOR'S ORGANIZ ATION 11/30/2023 [facility] Source Comments (unrecognize d section and content) In the event this informatio n is protected by the Federal Confidentiality of Alcohol and Drug Abuse Patient Records regulations: The Federal rules restrict any use of the information to criminally investigate or prosecute any alcohol or drug abuse patient.[facility] the event this information is protected by the Federal Confidentiality of Alcohol and Drug Abuse Patient Records regulations: The Federal rules restrict any use of the information to criminally investigate or prosecute any alcohol or drug abuse patient.[facility] the event this information is protected by the Federal Confidentiality of Alcohol and Drug Abuse Patient Records regulations: The Federal rules restrict any use of the information to criminally investigate or prosecute any alcohol or drug abuse patient.[facility] the event this information is protected by the Federal Confidentiality of Alcohol and Drug Abuse Patient Records regulations: The Federal rules restrict any use of the information to criminally investigate or prosecute any alcohol or drug abuse patient.[facility] the event this information is protected by the Federal Confidentiality of Alcohol and Drug Abuse Patient Records regulations: The Federal rules restrict any use of the information to criminally investigate or prosecute any alcohol or drug abuse patient.[facility] the event this information is protected by the Federal Confidentiality of Alcohol and Drug Abuse Patient Records regulations: The Federal rules restrict any use of the information to criminally investigate or prosecute any alcohol or drug abuse patient.[facility] the event this information is protected by the Federal Confidentiality of Alcohol and Drug Abuse Patient Records regulations: The Federal rules restrict any use of the information to criminally investigate or prosecute any alcohol or drug abuse patient.[facility] the event this information is protected by the Federal Confidentiality of Alcohol and Drug Abuse Patient Records regulations: The Federal rules restrict any use of the information to criminally investigate or prosecute any alcohol or drug abuse patient.[facility] the event this information is protected by the Federal Confidentiality of Alcohol and Drug Abuse Patient Records regulations: The Federal rules restrict any use of the information to criminally investigate or prosecute any alcohol or drug abuse patient.[facility] Care Teams (unrecognized sec tion and content) Staff Anesthetist Relationship Specialty Start Date End Date Sterling Morris DO PCP - General Family Practice 08/03/13 Stevo Terry [address] [place] [address] Neurology 08/03/13 Staff Anesthetist Relationship Specialty Start Date End Date Sterling Morris DO PCP - General Family Practice 08/03/13 Stevo Terry [address] [place] [address] Neurology 08/03/13 Staff Anesthetist Relationship Specialty Start Date End Date Sheets, Sterling Sun DO PCP - General Family Practice 08/03/13 Stevo Terry [address] [place] [address] Neurology 08/03/13 Staff Anesthetist Relationship Specialty Start Date End Date Sheets, Sterling Sun DO PCP - General Family Practice 08/03/13 Stevo Terry [address] [place] [address] Neurology 08/03/13 Staff Anesthetist Relationship Specialty Start Date End Date Sheets, Sterling Sun DO [address] [place] [address] PCP - General Family Medicine 08/03/13 Stevo Terry [address] [place] [address] Neurology 08/03/13 Staff Anesthetist Relationship Specialty Start Date End Date Sheets, Sterling Sun DO [address] [place] [address] PCP - General Family Medicine 08/03/13 Stevo Terry [address] [place] [address] Neurology 08/03/13 Staff Anesthetist Relationship Specialty Start Date End Date Sheets, Sterling Sun DO [address] [place] [address] PCP - General Family Medicine 08/03/13 Mara Stevomaty Amador [address] [place] [address] Neurology 08/03/13 Staff Anesthetist Relationship Specialty Start Date End Date Sterling Morris [address] [place] [phone] PCP - General Family Medicine 08/03/13 Stevo Terry [address] [place] [phone] Neurology 08/03/13 Staff Anesthetist Relationship Specialty Start Date End Date Sterling Morris [address] [place], [place] [id number] PCP - General 06/18/12 Anshu Cross MD [address] [place], [place] [id number] Referring Physician Rheumatology 11/27/23 Reason for Visit (unrecogniz ed section and content) Reason Comments Refill Request Reason Comments F/U 6 Month Restless legs. Gualberto nt states the cymbalta makes her nauseous Reason Comments Forms [employer] Disability Stat us Update Reason Comments Results Reason Comments Follow-up Lupus FOR RECORDS PERTAINING TO PATIENTS WHO ARE OR HAVE BEEN ENROLLED IN A CHEMICAL DEPENDENCY/SUBSTANCEABUSE PROGRAM, SOME INFORMATION MAY BE OMITTED. This clinical summary was aggregated from multiple sources. Caution should be exercised in using it in the provision of clinical care. This summary normalizes information from multiple sources, and as a consequence, information in this document may materially change the coding, format and clinical context of patient data. In addition, data may be omitted in some cases. CLINICAL DECISIONS SHOULD BE BASED ON THE PRIMARY CLINICAL RECORDS. [employer] [facility]. provides no warranty or guarantee of the accuracy or completeness of information in this document.
[2023-12-08 00:35] VITALS: BMI 22.8
--- NOTE | 2023-12-08 00:38 | RAD_ITS ---
STUDY: X-RAY - LEFT SHOULDER REASON FOR EXAM: Female, 58 years old. trauma TECHNIQUE: 2 view(s) of the shoulder. COMPARISON: None. FINDINGS: Normal glenohumeral articulation. Normal acromioclavicular joint. Normal acromion. Normal humeral head and visualized proximal humerus. The soft tissue structures are unremarkable. There is no demonstrated fracture. Normal visualized pulmonary apex. RAD/Shoulder min 2 Views IMPRESSION: No acute fracture or subluxation seen. Electronically Signed: Camilla Muhammad MD at 1:33 EST ,
[2023-12-08 00:46] LABS: Absolute Lymphocyte Count 0.94 X10^3/uL (0.83-4.51); Absolute Neutrophil Count 7.1 X10^3/uL (2.0-7.7); Basophil# 0.05 X10^3/uL; Basophil% 0.6 % (0-1); Eosinophil# 0.14 X10^3/uL; Eosinophils% 1.6 % (0-5); Hematocrit 41.8 % (37-47); Hemoglobin 14.1 g/dL (12.0-15.0); Lymphocyte # 0.94 X10^3/ul (0.83-4.51); Lymphocyte % 10.5 % (19-41); Mean Corp Hgb Conc 33.7 g/dL (32-36); Mean Corpuscular Hgb 32.2 pg (27.0-32.0); Mean Corpuscular Volume 95.4 fL (81-99); Mean Platelet Vol. 10.6 fl (6.2-12.0); Monocyte# 0.63 X10^3/uL; Monocyte% 7.1 % (0-10); NRBC Flagged by Analyzer 0 % (0-5); Neutrophil # 7.14 X10^3/uL (2.7-7.7); Neutrophil % 79.9 % (47-70); Platelet Count 208 K/mm3 (150-450); RBC Distribution Width CV 12.8 % (11.6-14.6); RBC Distribution Width SD 45.2 fl (35.1-43.9); Red Blood Count 4.38 M/mm3 (4.2-5.4); White Blood Count 8.9 K/mm3 (4.4-11.0)
[2023-12-08 00:49] VITALS: RESP 16
[2023-12-08 01:03] LABS: Amphetamine Urine VISTA POSITIVE (<1000 ng/mL); Barbiturate Urine VISTA NEGATIVE (< 200 ng/mL); Benzodiazepine Urine VISTA NEGATIVE (< 200 ng/mL); Cocaine Urine VISTA NEGATIVE (< 300 ng/mL); Ecstacy Urine VISTA POSITIVE (< 500 ng/mL); Methadone Urine VISTA NEGATIVE (< 300 ng/mL); PCP Urine VISTA NEGATIVE (< 25 ng/mL); THC Urine VISTA POSITIVE (< 50 ng/mL); Vista UDS pH Range 5
[2023-12-08 01:03] LABS: Anion Gap 8 (5-15); BUN 20 mg/dL (7-18); BUN/Creat Ratio 25.7 RATIO (10-20); Calcium,Total 9.3 mg/dL (8.5-10.1); Chloride 111 mmol/L (98-107); Creatinine, Serum 0.78 mg/dL (0.55-1.02); EST Glomerular Filtration Rate 80 mL/min (>60); Est Glom Filt Rate - Afr Amer 97 mL/min (>60); Estimated Creatinine Clearance 61.42 ml/min; Glucose 104 mg/dL (74-106); Potassium 3.9 mmol/L (3.5-5.1); Sodium Level 144 mmol/L (136-145)
[2023-12-08 01:12] LABS: Alcohol, Blood (Medical)-Serum < 3.0 mg/dL
[2023-12-08 04:49] VITALS: BP 121/74; PULSE 81; RESP 16; O2SAT 99
[2023-12-08 05:12] VITALS: BP 121/74; PULSE 81; RESP 16; TEMP 36.1; O2SAT 99
--- NOTE | 2023-12-08 07:08 | ED.RN ---
Attempted several times to call report over the past 2-3 hours. Called intake line and was transferred to 200 unit. Requested to speak to nurse receiving pt, person on the phone stated that nurses were in report and would be 30-45 minutes until they are ready for report. This nurse requested for [facility] nurse to call [facility] ER for report when they are ready.
[2023-12-08] MEDS: lamoTRIgine 100 MG Tablet PO (08:58)
== END 2023-12-08 10:38 ==
LOC: ED 12-08 00:23
PROVIDERS: Emergency Provider Emergency Medicine; PCP Family Medicine; Visit Provider Emergency Medicine
DX: F15.10 Other stimulant abuse, uncomplicated (principal); M32.9 Systemic lupus erythematosus, unspecified; F12.10 Cannabis abuse, uncomplicated; F17.210 Nicotine dependence, cigarettes, uncomplicated; Z79.899 Other long term (current) drug therapy
CPT/HCPCS: 73030; 80048; 80307; 80320; 85025; 99284; G0480